=== PATIENT | female | born 1990 | race African-American/Black ===

== ENCOUNTER 2025-07-29 05:38 | Emergency (ER) | payer BC, OTHER ==
--- OUTSIDE RECORDS SUMMARY | 2025-07-29 05:50 | XMS REPORT | Continuity of Care Document ---
Author Name Unknown Address [address] [facility] [place] [address] Organization [facility] [place] Address [address] [facility] [address] [place] [address] Care Team Providers Care Human Resources Training Manager Name Role Phone JANICE SALDANA Primary Care Physician Unavailab ari Borrego Samia REYES Attending Clinician [phone] SAMIA BORREGO Attending Clinician Unavailable Doctor Unassigned, [place] Attending Clinician U MALVIN Damico Attending Clinician Unavailable Lab, Flako Bomwan Attending Clinician Unavailable Janice Bingham Attending Clinician [phone] JANICE SALDANA Attending Clinician Unavailable Ivania Arce LVN Attending Clinician Unavailabl e MICAH FISH Attending Clinician Unavail able Visit, [facility] Nurse Attending Clinician Unava ilable Abe Micah REYES Attending Clinician + Doctor Unassigned, [place] Attending Clinician U CINTIA Richards Attending Clinician Jennifer vailable Lab, Flako Bowman Attending Clinician Unavailable Cintia Carr MD Attending Clinician Shana CHAVEZ, Janice Attending Clinician [phone] JULIO REEVES Attending Clinician Unavaila ble JULIO REEVES Attending Clinician Unavaila kaci Diezpe WHCNP, Micah Russell Attending Clinician + [facility]ending Clinician Unafarshad Mathews, [facility] Attending Clinician Unavailshai Reeves MD, Julio Hutchinson Attending Clinician [phone] ROSALINO DENIS Attending Clinician UnaMACI Rios Attending Clinician Unavailshai Silva CNM, Maci Gibbons Attending Clinician [phone] MIKIE HANNA Attending Clinician UnavailMOLLY Jackson Attending Clinician Unavailable Molly Gonzalez S Attending Clinician [phone] YUE CARVALHO Attending Clinician Unavailab ari Provider, Amy Temp Attending Clinician Jennifer thor Carvalho ELECTRIC METER TECHNICIAN, Yue Loaiza Attending Clinician [phone] INDIGO BEAN Attending Clinician Unavailable Vikas CHAVEZ, [place] Attending Clinician [phone] EbCarl Ortiz Attending Clinician [phone] CARL ZARAGOZA Attending Clinician Unavailable Unknown, Attending Attending Clinician Unavailab ari AMBREEN_TIMA Attending Clinician Unavailable NAYELY CHILEL Attending Clinician UnavailFlako Sullivan Test Attending Clinician UnavailNayely Tang Attending Clinician + [phone] Rigoberto SONG, Carole T Attending Clinician Unavailab Leann VAUGHAN, Sandra Attending Clinician [phone] Eladia Iqbal Attending Clinician [phone] ELADIA HARDY Attending Clinician Unavailabl CHARITY Gonzalez Attending Clinician Unavailable Inocente BLACKPCharity Attending Clinician [phone] Provider, [facility] Attending Clinician Unavailable ROSALINO WALLS III Attending Clinician UnavailRosalino Lobo MD Attending Clinician [phone] ANTHONY ABERNATHY Attending Clinician Unavailflorencio Lopez MD, [facility] Attending Clinician + [phone] Nurse, [facility] Pob Immunization Attending Clinician Unavailable Pj Rangel DO Attending Clinician PJ RANGEL Attending Clinician Unavail able JO LOPEZ Attending Clinician Unavaila ble Only, Adc Test Attending Clinician Unavailable KASEY KEATING Attending Clinician Unavailflorencio LOERA, ALANA Attending Clinician Unavailable Graeme Siddiqui MD Attending Clinician [phone] Melissa Casillas PT Attending Clinician Unavailab Kasey Vallejo MD Attending Clinician [phone] DARWIN LANGE Attending Clinician Unavailable CT RYAN Attending Clinician UnavailOSCAR Douglas Attending Clinician Tommy Justin Attending Clinician Unavailable AMBREEN_FARHANA Admitting Clinician Unavailable Payers Payer Name Policy Type Policy Number Effective Date Expirati on Date Source Problems Condition Name Condition Details Condition Category Status Onset Date Resolution Date Last Treatment Date Treating Clinician Comments Source Anxiety Anxiety Disease Active 7- 00:00: 00 [facility] Vitamin D deficiency Vitamin D deficiency Disease Active 7-02 00:00: 00 [facility] Benign hypertensi on Benign hypertensi on Disease Active 7-02 00:00: 00 [facility] Prediabete s Prediabete s Disease Active 6-27 00:00: 00 [facility] Dysmenorrh ea Dysmenorrh ea Disease Active 9-17 00:00: 00 [facility] Palpitatio ns Palpitatio ns Disease Active 8-12 00:00: 00 [facility] Multinodul ar goiter Multinodul ar goiter Disease Active 8-12 00:00: 00 [facility] Blood pressure increase diastolic Blood pressure increase diastolic Disease Active 8-05 00:00: 00 [facility] History of syphilis History of syphilis Disease Active 5-13 00:00: 00 [facility] Syphilis Syphilis Disease Active 5-13 00:00: 00 [facility] Depo-Prove ra contracept jacky status Depo-Prove ra contracept jacky status Disease Active 02-17 00:00: 00 [facility] Class 2 obesity due to excess calories with body mass index (BMI) of 37.0 to 37.9 in adult, unspecifie d whether serious comorbidit y present Class 2 obesity due to excess calories with body mass index (BMI) of 37.0 to 37.9 in adult, unspecifie d whether serious comorbidit y present Disease Active 02-17 00:00: 00 [facility] Menorrhagi a with regular cycle Menorrhagi a with regular cycle Disease Active 01-31 00:00: 00 [facility] Obesity (BMI 30-39.9) Obesity (BMI 30-39.9) Disease Active 06-16 00:00: 00 [facility] History of bilateral tubal ligation History of bilateral tubal ligation Disease Active 04-06 00:00: 00 [facility] Acute right ankle pain Acute right ankle pain Disease Resolve d 2021-10 00:00: 00 2025-05-20 00:00:00 2025-05-20 16:40:44 [facility] Right ankle swelling Right ankle swelling Disease Resolve d 2021-10 00:00: 00 2025-05-20 00:00:00 2025-05-20 16:40:46 [facility] Lump or mass in breast Lump or mass in breast Disease Resolve d 04-06 00:00: 00 2025-05-20 00:00:00 2025-05-20 16:40:23 [facility] Ovarian cyst Ovarian cyst Disease Resolve d 04-06 00:00: 00 2025-05-20 00:00:00 2025-05-20 16:40:25 Overview: Formattin g of this note might be different from the original. Per patient report [facility] Class 2 obesity due to excess calories with body mass index (BMI) of 37.0 to 37.9 in adult, unspecifie d whether serious comorbidit y present Class 2 obesity due to excess calories with body mass index (BMI) of 37.0 to 37.9 in adult, unspecifie d whether serious comorbidit y present Disease Resolve d 5-11 00:00: 00 2022-09-15 00:00:00 2022-09-15 08:52:47 [facility] Vaginal discharge Vaginal discharge Disease Resolve d 5-11 00:00: 00 2022-09-14 00:00:00 2022-09-14 14:08:29 [facility] Well woman exam Well woman exam Disease Resolve d 4-24 00:00: 00 2022-09-14 00:00:00 2022-09-14 14:08:45 [facility] Screen for STD (sexually transmitte d disease) Screen for STD (sexually transmitte d disease) Disease Resolve d 07-04 00:00: 00 2022-09-14 00:00:00 2022-09-14 14:08:43 [facility] Bacterial vaginosis Bacterial vaginosis Disease Resolve d 8-16 00:00: 00 2022-09-14 00:00:00 2022-09-14 14:08:23 [facility] Encounter for surveillan ce of other contracept jacky Encounter for surveillan ce of other contracept jacky Disease Resolve d 1-14 00:00: 00 2022-09-14 00:00:00 2022-09-14 14:08:56 [facility] Well woman exam (no gynecologi charity exam) Well woman exam (no gynecologi charity exam) Disease Resolve d 1-14 00:00: 00 2022-09-14 00:00:00 2022-09-14 14:08:37 [facility] Anemia of mother in , condition Anemia of mother in , condition Disease Resolve d 07-04 00:00: 00 2017-07-26 00:00:00 2017-07-26 11:49:28 [facility] Indication for care in labor or delivery Indication for care in labor or delivery Disease Resolve d 06-19 00:00: 2017-07-04 00:00:00 2017-07-04 12:19:52 [facility] state state Disease Resolve d 9-10 00:00: 00 2017-07-04 00:00:00 2017-07-04 12:19:56 [facility] Status post section routine follow-up Status post section routine follow-up Disease Resolve d 9-10 00:00: 00 2017-07-04 00:00:00 2017-07-04 12:19:58 [facility] Group beta Strep positive Group beta Strep positive Disease Resolve d 8-18 00:00: 00 2017-07-04 00:00:00 2017-07-04 12:19:46 [facility] Anemia of mother in , antepartum , third trimester Anemia of mother in , antepartum , third trimester Disease Resolve d 8-17 00:00: 00 2017-07-04 00:00:00 2017-07-04 12:19:43 [facility] Sciatic nerve pain Sciatic nerve pain Disease Resolve d 7-05 00:00: 00 2017-07-04 00:00:00 2017-07-04 12:19:40 [facility] Supervisio n of high risk , antepartum Supervisio n of high risk , antepartum Disease Resolve d 04-06 00:00: 00 2017-07-04 00:00:00 2017-07-04 12:19:26 [facility] Multiparit y Multiparit y Disease Resolve d 04-06 00:00: 00 2017-07-04 00:00:00 2017-07-04 12:19:29 [facility] History of miscarriag e History of miscarriag e Disease Resolve d 04-06 00:00: 00 2017-07-04 00:00:00 2017-07-04 12:19:32 [facility] History of section History of section Disease Resolve d 04-06 00:00: 00 2017-07-04 00:00:00 2017-07-04 12:19:34 [facility] History of gestationa l hypertensi on History of gestationa l hypertensi on Disease Resolve d 04-06 00:00: 00 2017-07-04 00:00:00 2017-07-04 12:19:37 [facility] Obesity affecting Obesity affecting Disease Resolve d 1-14 00:00: 00 2017-07-04 00:00:00 2017-07-04 12:19:23 [facility] 39 weeks gestation of 39 weeks gestation of Disease Resolve d 06-17 00:00: 00 2017-06-19 00:00:00 2017-06-19 06:05:18 [facility] History of cervical dysplasia History of cervical dysplasia Disease Resolve d 1 00:00: 00 2017-04-06 00:00:00 2017-04-06 14:14:47 [facility] Allergies, Adverse Reactions, Alerts Allergy Name Allergy Type Status Severity Reaction(s) Onset Date Inactive Date Treating Clinician Comments Source NO KNOWN ALLERGIE S Drug Class Active [facility] Social History Social Habit Start Date Stop Date Quantity Comments Source [facility] History of tobacco use Cigar Smoker [facility] ASSERTION Not [facility] History of Occupation [facility] History SDOH Alcohol Frequency [facility] History SDOH Alcohol [facility] SD[facility] Alcohol Binge [facility] Alcoholic beverage intake 2025-05-20 00:00:00 2025-05-20 00:00:00 .43 /d [facility] History of Social function 2024-12-31 00:00:00 2024-12-31 00:00:00 [facility] Alcohol intake 2024-01-16 00:00:00 2024-01-16 00:00:00 .43 /d [facility] Tobacco use and exposure 2023-03-18 00:00:00 2023-03-18 00:00:00 Smokeless tobacco non-user [facility] Exposure to SARS-CoV-2 (event) 2023-01-10 00:00:00 2023-01-20 09:01:00 Not sure [facility] Alcohol Comment 2020-02-18 00:00:00 2020-02-18 00:00:00 socially [facility] Sex assigned at 1990 00:00:00 1990 00:00:00 [facility] Smoking Status Start Date Stop Date Source Never smoked tobacco [facility] Ex-smoker 2023-03-18 00:00:00 2023-03-18 [facility] Ordered Medication Name Filled Medication Name Start Date Stop Date Current Medication? Ordering Clinician Indication Dosage Frequency Signature (SIG) Comments Components Source medroxyPROG ESTERone (DEPO-PROVE RA) syringe 150 mg 05-14 19:00: 00 07-08 18:59 :00 Yes [id number] 150mg 150 mg, Intramuscu lar, [id number], 5 doses, First dose on Tue05/14/25 at 1400, Last dose on Tue04/15/26 at 1400, Routine [facility] metFORMIN 500 mg tablet 12-31 00:00: 00 Yes [id number] 500mg Take 1 tablet by mouth in the morning and 1 tablet in the evening. Take with meals. [facility] levocetiriz ine 5 mg tablet 12-31 00:00: 00 Yes [id number] 5mg Take 1 tablet by mouth every evening. [facility] fluticasone propion-amber meteroL (ADVAIR DISKUS) 250-50 mcg/dose inhalation disk 12-31 00:00: 00 Yes [id number] 1{puff} Inhale 1 Puff every 12 (twelve) hours. [facility] amLODIPine (NORVASC) 10 mg tablet 12-31 00:00: 00 Yes [id number] 10mg Take 1 tablet by mouth in the morning. [facility] azelastine 0.05 % ophthalmic solution 12-31 00:00: 00 Yes [id number] 1[drp] Place 1 Drop in both eyes in the morning and 1 Drop in the evening. [facility] traZODone 50 mg tablet 12-31 00:00: 05-14 00:00 :00 No [id number] 50mg Take 1 tablet by mouth at bedtime as needed for Insomnia. [facility] SERTraline 100 mg tablet 12-31 00:00: 00 05-14 00:00 :00 No [id number] 150mg Take 1.5 tablets by mouth in the morning. [facility] montelukast 10 mg tablet 12-31 00:00: 05-14 00:00 :00 No [id number] 10mg Take 1 tablet by mouth in the morning. [facility] busPIRone 10 mg tablet 04-24 10:05-14 00:00 :00 No TAKE 1 TABLET BY MOUTH 2 (TWO) TIMES DAILY NEEDED FOR OTHER (ANXIETY) FOR UP TO 45 DAYS. [facility] ibuprofen 800 mg tablet 04-24 10:: 05-14 00:00 :00 No TAKE 1 TABLET BY MOUTH EVERY 6 TO 8 HOURS NEEDED FOR PAIN [facility] bromphenira mine-pseudo ephedrine-D M 2-30-10 mg/5 mL syrup 04-24 10:12-31 00:00 :00 No PLEASE SEE ATTACHED FOR DETAILED DIRECTIONS [facility] amLODIPine (NORVASC) 10 mg tablet 04-10 00:00: 00 12-31 00:00 :00 No [id number] 10mg Take 1 tablet by mouth in the morning. [facility] metFORMIN 500 mg tablet 04-10 00:00: 00 12-31 00:00 :00 No [id number] 500mg Take 1 tablet by mouth in the morning and 1 tablet in the evening. Take with meals. [facility] naproxen 500 mg tablet 04-09 00:00: 00 05-14 00:00 :00 No [id number] 500mg Take 1 tablet by mouth 2 (two) times daily as needed for Pain (scale 4-6). [facility] SERTRALINE 100 mg tablet 04-05 00:00: 00 12-31 00:00 :00 No [id number] 150mg TAKE 1.5 TABLETS BY MOUTH IN THE MORNING [facility] azelastine 137 mcg (0.1 %) nasal spray 03-15 00:00: 00 Yes [id number] 1{spray } Use 1 [place] in each nostril in the morning and 1 [place] in the evening. Use in each nostril as directed [facility] naproxen 500 mg tablet 03-13 00:00: 00 04-09 00:00 :00 No [id number] 500mg Take 1 tablet by mouth 2 (two) times daily as needed for Pain (scale 4-6). [facility] methylPREDN ISolone 4 mg tablets 03-13 00:00: 00 03-20 04:59 :00 No [id number] Take by mouth SEE-INSTRU CTIONS for 6 days. follow package directions [facility] amLODIPine (NORVASC) 10 mg tablet 03-01 00:00: 00 04-10 00:00 :00 No [id number] 10mg Take 1 tablet by mouth in the morning. [facility] SERTraline (ZOLOFT) 100 mg tablet 03-01 00:00: 00 04-05 00:00 :00 No [id number] 150mg Take 1.5 tablets by mouth in the morning. [facility] traZODone 50 mg tablet 01-22 00:00: 00 12-31 00:00 :00 No [id number] 50mg Take 1 tablet by mouth at bedtime. [facility] fluticasone propion-amber meteroL (ADVAIR DISKUS) 250-50 mcg/dose inhalation disk -15 00:00: 00 12-31 00:00 :00 No [id number] 1{puff} Inhale 1 Puff every 12 (twelve) hours. [facility] fluticasone propionate 50 mcg/actuati on nasal spray 01-16 00:00: 00 05-14 00:00 :00 No SPRAY 1 SPRAY BY INTRANASAL ROUTE EVERY DAY [facility] amLODIPine (NORVASC) 5 mg tablet 01-15 00:00: 00 03-01 00:00 :00 No [id number] 5mg Take 1 tablet by mouth in the morning. [facility] AZELASTINE 0.05 % ophthalmic solution 01-09 00:00: 00 12-31 00:00 :00 No [id number] 1[drp] PLACE 1 DROP IN BOTH EYES IN THE MORNING AND 1 DROP IN THE EVENING. [facility] amLODIPine 2.5 mg tablet 01-01 00:00: 00 01-15 00:00 :00 No [id number] 2.5mg Take 1 tablet by mouth in the morning. [facility] albuterol 2.5 mg /3 mL (0.083 %) nebulizer solution 12-21 00:00: 00 Yes INHALE 3 ML BY NEBULIZATI ON 3 TIMES A DAY [facility] ipratropium 0.02 % nebulizer solution 12-21 00:00: 00 05-14 00:00 :00 No INHALE 2.5 ML EVERY 6 HOURS BY INHALATION ROUTE FOR 30 DAYS. [facility] triamcinolo ne acetonide (KENALOG) injection 40 mg 12-18 21:00: 00 12-18 20:28 :00 No [id number] 40mg [facility] levocetiriz ine 5 mg tablet 12-18 00:00: 00 12-31 00:00 :00 No [id number] 5mg Take 1 tablet by mouth every evening. [facility] montelukast 10 mg tablet 12-18 00:00: 00 12-31 00:00 :00 No [id number] 10mg Take 1 tablet by mouth in the morning. [facility] azelastine 137 mcg (0.1 %) nasal spray 2024-0 3-11 00:00: 00 03-15 00:00 :00 No [id number] 1{spray } Use 1 [place] in each nostril in the morning and 1 [place] in the evening. Use in each nostril as directed [facility] fluticasone propion-amber meteroL (ADVAIR DISKUS) 250-50 mcg/dose inhalation disk 3-11 00:00: 00 01-22 00:00 :00 No [id number] 1{puff} Inhale 1 Puff every 12 (twelve) hours. [facility] azelastine 0.05 % ophthalmic solution 3-11 00:00: 00 01-09 00:00 :00 No [id number] 1[drp] Place 1 Drop in both eyes in the morning and 1 Drop in the evening. [facility] bromphenira mine-pseudo ephedrine-D M (BROMFED DM) 2-30-10 mg/5 mL syrup 3- 00:00: 00 12-29 04:59 :00 No [id number] 5mL Take 5 mL by mouth 4 (four) times daily as needed for Congestion /Allergies or Cold symptoms for up to 10 days. [facility] SERTraline (ZOLOFT) 100 mg tablet 1- 00:00: 00 03-01 00:00 :00 No [id number] 100mg Take 1 tablet by mouth in the morning. [facility] traZODone 50 mg tablet 1- 00:00: 00 01-21 00:00 :00 No [id number] 50mg Take 1 tablet by mouth at bedtime. [facility] SERTraline 50 mg tablet 2022-10 2- 00:00: 00 10-11 00:00 :00 No [id number] 75mg TAKE 1.5 TABLETS BY MOUTH IN THE MORNING [facility] amLODIPine 2.5 mg tablet 2022-10 0-09 00:00: 00 Yes [id number] 2.5mg Take 1 tablet by mouth in the morning. [facility] SERTraline (ZOLOFT) 50 mg tablet 2022-10 00:00: 00 09-09 00:00 :00 No [id number] 75mg Take 1.5 tablets by mouth in the morning. [facility] BUSPIRONE 10 mg tablet 04-14 00:00: 00 05-30 04:59 :00 No [id number] 10mg TAKE 1 TABLET BY MOUTH 2 (TWO) TIMES DAILY NEEDED FOR OTHER (ANXIETY) FOR UP TO 45 DAYS. [facility] nystatin 100,000 unit/gram powder 04-05 00:00: 00 05-14 00:00 :00 No [id number] Apply to area(s) 2 (two) times daily as needed for Other (venancio skin fold). [facility] clotrimazol e-betametha sone (LOTRISONE) cream 04-05 00:00: 00 05-14 00:00 :00 No [id number] Apply to area(s) 2 (two) times daily. [facility] SERTraline (ZOLOFT) 50 mg tablet 04-05 00:00: 00 07-18 00:00 :00 No [id number] 50mg Take 1 tablet by mouth in the morning. [facility] ergocalcife rol, vitamin d2, 1,250 mcg (50,000 unit) capsule 04-03 00:00: 00 12-31 00:00 :00 No [id number] 23391P Take 1 capsule by mouth weekly. [facility] metFORMIN 500 mg tablet 03-18 00:00: 00 04-10 00:00 :00 No [id number] 500mg Take 1 tablet by mouth in the morning and 1 tablet in the evening. Take with meals. [facility] levocetiriz ine 5 mg tablet 03-18 00:00: 00 12-18 00:00 :00 No [id number] 5mg Take 1 tablet by mouth every evening. [facility] montelukast 10 mg tablet 03-18 00:00: 00 12-18 00:00 :00 No [id number] 10mg Take 1 tablet by mouth in the morning. [facility] semaglutide , weight loss, (WEGOVY) 0.25 mg/0.5 mL PnIj SC injection 03-18 00:00: 00 07-18 00:00 :00 No [id number] .25mg inject 0.25 mg under the skin weekly. [facility] amLODIPine 2.5 mg tablet 03-18 00:00: 00 07-18 00:00 :00 No [id number] 2.5mg Take 1 tablet by mouth in the morning. [facility] busPIRone 10 mg tablet 03-18 00:00: 00 04-14 00:00 :00 No [id number] 10mg Take 1 tablet by mouth 2 (two) times daily as needed for Other (anxiety) for up to 45 days. [facility] SERTraline (ZOLOFT) 50 mg tablet 03-18 00:00: 00 04-05 00:00 :00 No [id number] 50mg Take 1 tablet by mouth in the morning. [facility] montelukast 10 mg tablet 01-19 00:00: 00 03-18 00:00 :00 No [id number] 10mg Take 1 tablet by mouth in the morning. [facility] levocetiriz ine 5 mg tablet 01-19 00:00: 00 03-18 00:00 :00 No [id number] 5mg Take 1 tablet by mouth every evening. [facility] amLODIPine 2.5 mg tablet 10-18 00:00: 00 03-18 00:00 :00 No [id number] 2.5mg Take 1 tablet by mouth in the morning. [facility] metFORMIN 500 mg tablet 10-18 00:00: 00 03-18 00:00 :00 No [id number] 500mg Take 1 tablet by mouth in the morning and 1 tablet in the evening. Take with meals. [facility] amLODIPine 2.5 mg tablet 2021-10 10:52: 36 09-17 00:00 :00 No 2.5mg Take 2.5 mg by mouth daily. [facility] amLODIPine 2.5 mg tablet 2021-10 00:00: 00 10-15 00:00 :00 No [id number] 2.5mg Take 1 tablet by mouth in the morning. [facility] metFORMIN 500 mg tablet 2021-10 00:00: 00 10-15 00:00 :00 No [id number] 500mg Take 1 tablet by mouth in the morning and 1 tablet in the evening. Take with meals. [facility] medroxyPROG ESTERone (DEPO-PROVE RA) syringe 150 mg 2021-10 20:15: 00 05-14 18:58 :49 No [id number] 150mg 150 mg, Intramuscu lar, [id number], First dose on Tue09/14/22 at 1415, Until Discontinu ed, Routine [facility] cyclobenzap rine 5 mg tablet 2021-10 00:00: 00 09-17 00:00 :00 No [id number] 5mg Take 1 tablet by mouth in the morning and 1 tablet at noon and 1 tablet in the evening. [facility] methylPREDN ISolone (MEDROL, ALEKS,) 4 mg tablets 2021-10 00:00: 00 08-17 05:59 :00 No [id number] Take by mouth SEE-INSTRU CTIONS for 5 days. follow package directions [facility] ibuprofen (IBU) tablet 800 mg 2021-10 15:15: 00 08-03 14:30 :00 No [id number] 800mg [facility] amLODIPine 2.5 mg tablet 2021-10 10:41: 47 Yes 2.5mg Take 2.5 mg by mouth daily. [facility] albuterol 90 mcg/actuati on inhaler 2021-10 00:00: 00 Yes [id number] 2{puff} Inhale 2 Puffs every 6 (six) hours as needed for Wheezing or Shortness of Breath. [facility] levocetiriz ine 5 mg tablet 2021-10 00:00: 00 01-19 00:00 :00 No [id number] 5mg Take 1 tablet by mouth every evening. [facility] montelukast [facility] mg tablet 2021-10 00:00: 00 01-19 00:00 :00 No [id number] 10mg Take 1 tablet by mouth in the morning. [facility] bromphenira mine-pseudo ephedrine-D M (BROMFED DM) 2-30-10 mg/5 mL syrup 2021-10 00:00: 00 08-02 04:59 :00 No [id number] 5mL Take 5 mL by mouth 4 (four) times daily as needed for Congestion /Allergies or Cough for up to 10 days. [facility] azithromyci n 250 mg tablet 2021-10 00:00: 00 07-29 04:59 :00 No [id number] 250mg Z-Aleks = 500 mg day 1, then 250 mg days 2 to 5. Take 500 mg day 1, then 250 mg days 2 to 5. [facility] medroxyPROG ESTERone (DEPO-PROVE RA) injection 150 mg 06-22 17:00: 00 06-22 20:38 :00 No [id number] 150mg [facility] amLODIPine 2.5 mg tablet 11-09 11:31: 19 Yes 2.5mg Take 2.5 mg by mouth daily. [facility] albuterol 2.5 mg /3 mL (0.083 %) nebulizer solution 11-09 00:00: 00 07-22 00:00 :00 No [id number] 2.5mg Inhale 3 mL every 4 (four) hours as needed for Wheezing or Shortness of Breath. [facility] ipratropium 0.02 % nebulizer solution 11-09 00:00: 00 07-22 00:00 :00 No [id number] .5mg Inhale 2.5 mL every 4 (four) hours as needed for Wheezing or Shortness of Breath. [facility] albuterol 90 mcg/actuati on inhaler 11-09 00:00: 00 07-22 00:00 :00 No [id number] 2{puff} Inhale 2 Puffs every 6 (six) hours as needed for Wheezing or Shortness of Breath. [facility] benzonatate 100 mg capsule 11-09 00:00: 00 07-22 00:00 :00 No [id number] 200mg Take 2 capsules by mouth every 8 (eight) hours as needed for Cough. [facility] codeine-gua ifenesin 10-100 mg/5 mL oral solution 11-09 00:00: 00 07-22 00:00 :00 No 5mL Take 5 mL by mouth every 6 (six) hours as needed for Cough. Indication s: cough [facility] medroxyPROG ESTERone (DEPO-PROVE RA) injection 150 mg 17 16:15: 00 03-11 15:17 :00 No [id number] 150mg 150 mg, Intramuscu lar, [id number], 4 doses, First dose on Tue06/26/21 at 1115, Last dose on Tue03/05/22 at 1115, Routine [facility] meloxicam 7.5 mg tablet 8-19 00:00: 00 07-22 00:00 :00 No [id number] 7.5mg Take 1 tablet by mouth daily. [facility] methocarbam oL 500 mg tablet 7-08 00:00: 00 11-09 00:00 :00 No [id number] 500mg Take 1 tablet by mouth at bedtime as needed for Pain (scale 7-10). [facility] Immunizations Ordered Immunization Name Filled Immunization Name Date Status Comments Source TDAP 2024-05-05 00:00:00 Completed [facility] SARS-COV-2 COVID-19 PFIZER VACCINE 2024-05-05 00:00:00 Completed [facility] HPV9 2024-05-05 00:00:00 Completed [facility] Influenza Virus Vaccine Quad IM, Preserv and ABX Free 6 MO-64 YRS (FLUCELVAX) 2024-05-05 00:00:00 Completed [facility] Pneumococcal 20 Conjugate, PCV20 (Prevnar 20) 2024-05-05 00:00:00 Completed [facility] TDAP 2024-03-13 13:00:00 Completed [facility] SARS-COV-2 COVID-19 PFIZER VACCINE 2024-03-13 13:00:00 Completed [facility] HPV9 2024-03-13 13:00:00 Completed [facility] Influenza Virus Vaccine Quad IM, Preserv and ABX Free 6 MO-64 YRS (FLUCELVAX) 2024-03-13 13:00:00 Completed [facility] Pneumococcal 20 Conjugate, PCV20 (Prevnar 20) 2024-03-13 13:00:00 Completed [facility] Influenza Virus Vaccine Quad IM, Preserv and ABX Free 6 MO-64 YRS (FLUCELVAX) 2024-03-01 13:00:00 Completed [facility] Pneumococcal 20 Conjugate, PCV20 (Prevnar 20) 2024-03-01 13:00:00 Completed [facility] TDAP 2024-03-01 13:00:00 Completed [facility] SARS-COV-2 COVID-19 PFIZER VACCINE 2024-03-01 13:00:00 Completed [facility] HPV9 2024-03-01 13:00:00 Completed [facility] TDAP 2024-01-23 00:00:00 Completed [facility] SARS-COV-2 COVID-19 PFIZER VACCINE 2024-01-23 00:00:00 Completed [facility] HPV9 2024-01-23 00:00:00 Completed [facility] Influenza Virus Vaccine Quad IM, Preserv and ABX Free 6 MO-64 YRS (FLUCELVAX) 2024-01-23 00:00:00 Completed [facility] Pneumococcal 20 Conjugate, PCV20 (Prevnar 20) 2024-01-23 00:00:00 Completed [facility] TDAP 2024-01-22 00:00:00 Completed [facility] SARS-COV-2 COVID-19 PFIZER VACCINE 2024-01-22 00:00:00 Completed [facility] HPV9 2024-01-22 00:00:00 Completed [facility] Influenza Virus Vaccine Quad IM, Preserv and ABX Free 6 MO-64 YRS (FLUCELVAX) 2024-01-22 00:00:00 Completed [facility] Pneumococcal 20 Conjugate, PCV20 (Prevnar 20) 2024-01-22 00:00:00 Completed [facility] Influenza Virus Vaccine Quad IM, Preserv and ABX Free 6 MO-64 YRS (FLUCELVAX) 2024-01-16 15:30:00 Completed [facility] Pneumococcal 20 Conjugate, PCV20 (Prevnar 20) 2024-01-16 15:30:00 Completed [facility] TDAP 2024-01-16 15:30:00 Completed [facility] SARS-COV-2 COVID-19 PFIZER VACCINE 2024-01-16 15:30:00 Completed [facility] HPV9 2024-01-16 15:30:00 Completed [facility] TDAP 2024-01-16 14:00:00 Completed [facility] SARS-COV-2 COVID-19 PFIZER VACCINE 2024-01-16 14:00:00 Completed [facility] HPV9 2024-01-16 14:00:00 Completed [facility] Influenza Virus Vaccine Quad IM, Preserv and ABX Free 6 MO-64 YRS (FLUCELVAX) 2024-01-16 14:00:00 Completed [facility] Pneumococcal 20 Conjugate, PCV20 (Prevnar 20) 2024-01-16 14:00:00 Completed [facility] TDAP 2024-01-10 00:00:00 Completed [facility] SARS-COV-2 COVID-19 PFIZER VACCINE 2024-01-10 00:00:00 Completed [facility] HPV9 2024-01-10 00:00:00 Completed [facility] Influenza Virus Vaccine Quad IM, Preserv and ABX Free 6 MO-64 YRS (FLUCELVAX) 2024-01-10 00:00:00 Completed [facility] Pneumococcal 20 Conjugate, PCV20 (Prevnar 20) 2024-01-10 00:00:00 Completed [facility] Influenza Virus Vaccine Quad IM, Preserv and ABX Free 6 MO-64 YRS (FLUCELVAX) 2023-12-19 14:30:00 Completed [facility] Pneumococcal 20 Conjugate, PCV20 (Prevnar 20) 2023-12-19 14:30:00 Completed [facility] TDAP 2023-12-19 14:30:00 Completed [facility] SARS-COV-2 COVID-19 PFIZER VACCINE 2023-12-19 14:30:00 Completed [facility] HPV9 2023-12-19 14:30:00 Completed [facility] TDAP 2023-12-19 00:00:00 Completed [facility] SARS-COV-2 COVID-19 PFIZER VACCINE 2023-12-19 00:00:00 Completed [facility] HPV9 2023-12-19 00:00:00 Completed [facility] Influenza Virus Vaccine Quad IM, Preserv and ABX Free 6 MO-64 YRS (FLUCELVAX) 2023-12-19 00:00:00 Completed [facility] Pneumococcal 20 Conjugate, PCV20 (Prevnar 20) 2023-12-19 00:00:00 Completed [facility] Influenza Virus Vaccine Quad IM, Preserv and ABX Free 6 MO-64 YRS (FLUCELVAX) 2023-11-14 08:15:00 Completed [facility] Pneumococcal 20 Conjugate, PCV20 (Prevnar 20) 2023-11-14 08:15:00 Completed [facility] TDAP 2023-11-14 08:15:00 Completed [facility] SARS-COV-2 COVID-19 PFIZER VACCINE 2023-11-14 08:15:00 Completed [facility] HPV9 2023-11-14 08:15:00 Completed [facility] TDAP 2023-11-14 00:00:00 Completed [facility] SARS-COV-2 COVID-19 PFIZER VACCINE 2023-11-14 00:00:00 Completed [facility] HPV9 2023-11-14 00:00:00 Completed [facility] Influenza Virus Vaccine Quad IM, Preserv and ABX Free 6 MO-64 YRS (FLUCELVAX) 2023-11-14 00:00:00 Completed [facility] Pneumococcal 20 Conjugate, PCV20 (Prevnar 20) 2023-11-14 00:00:00 Completed [facility] TDAP 2023-10-14 00:00:00 Completed [facility] SARS-COV-2 COVID-19 PFIZER VACCINE 2023-10-14 00:00:00 Completed [facility] HPV9 2023-10-14 00:00:00 Completed [facility] Influenza Virus Vaccine Quad IM, Preserv and ABX Free 6 MO-64 YRS (FLUCELVAX) 2023-10-14 00:00:00 Completed [facility] Pneumococcal 20 Conjugate, PCV20 (Prevnar 20) 2023-10-14 00:00:00 Completed [facility] Influenza Virus Vaccine Quad IM, Preserv and ABX Free 6 MO-64 YRS (FLUCELVAX) 2023-10-13 14:15:00 Completed [facility] Pneumococcal 20 Conjugate, PCV20 (Prevnar 20) 2023-10-13 14:15:00 Completed [facility] TDAP 2023-10-13 14:15:00 Completed [facility] SARS-COV-2 COVID-19 PFIZER VACCINE 2023-10-13 14:15:00 Completed [facility] HPV9 2023-10-13 14:15:00 Completed [facility] TDAP 2023-10-13 13:00:00 Completed [facility] SARS-COV-2 COVID-19 PFIZER VACCINE 2023-10-13 13:00:00 Completed [facility] HPV9 2023-10-13 13:00:00 Completed [facility] Influenza Virus Vaccine Quad IM, Preserv and ABX Free 6 MO-64 YRS (FLUCELVAX) 2023-10-13 13:00:00 Completed [facility] Pneumococcal 20 Conjugate, PCV20 (Prevnar 20) 2023-10-13 13:00:00 Completed [facility] HPV9 2023-10-13 00:00:00 Completed TDAP 2023-10-11 16:00:00 Completed [facility] SARS-COV-2 COVID-19 PFIZER VACCINE 2023-10-11 16:00:00 Completed [facility] HPV9 2023-10-11 16:00:00 Completed [facility] Influenza Virus Vaccine Quad IM, Preserv and ABX Free 6 MO-64 YRS (FLUCELVAX) 2023-10-11 16:00:00 Completed [facility] Pneumococcal 20 Conjugate, PCV20 (Prevnar 20) 2023-10-11 16:00:00 Completed [facility] TDAP 2023-10-11 00:00:00 Completed [facility] SARS-COV-2 COVID-19 PFIZER VACCINE 2023-10-11 00:00:00 Completed [facility] HPV9 2023-10-11 00:00:00 Completed [facility] Influenza Virus Vaccine Quad IM, Preserv and ABX Free 6 MO-64 YRS (FLUCELVAX) 2023-10-11 00:00:00 Completed [facility] Pneumococcal 20 Conjugate, PCV20 (Prevnar 20) 2023-10-11 00:00:00 Completed [facility] TDAP 2023-09-20 00:00:00 Completed [facility] SARS-COV-2 COVID-19 PFIZER VACCINE 2023-09-20 00:00:00 Completed [facility] HPV9 2023-09-20 00:00:00 Completed [facility] Influenza Virus Vaccine Quad IM, Preserv and ABX Free 6 MO-64 YRS (FLUCELVAX) 2023-09-20 00:00:00 Completed [facility] TDAP 2023-09-09 00:00:00 Completed [facility] SARS-COV-2 COVID-19 PFIZER VACCINE 2023-09-09 00:00:00 Completed [facility] HPV9 2023-09-09 00:00:00 Completed [facility] Influenza Virus Vaccine Quad IM, Preserv and ABX Free 6 MO-64 YRS (FLUCELVAX) 2023-09-09 00:00:00 Completed [facility] TDAP 2023-07-18 13:30:00 Completed [facility] SARS-COV-2 COVID-19 PFIZER VACCINE 2023-07-18 13:30:00 Completed [facility] HPV9 2023-07-18 13:30:00 Completed [facility] Influenza Virus Vaccine Quad IM, Preserv and ABX Free 6 MO-64 YRS (FLUCELVAX) 2023-07-18 13:30:00 Completed [facility] SARS-COV-2 COVID-19 PFIZER VACCINE 2023-07-18 11:30:00 Completed [facility] HPV9 2023-07-18 11:30:00 Completed [facility] TDAP 2023-07-18 11:30:00 Completed [facility] HPV9 2023-07-18 00:00:00 Completed [facility] TDAP 2023-06-29 00:00:00 Completed [facility] SARS-COV-2 COVID-19 PFIZER VACCINE 2023-06-29 00:00:00 Completed [facility] HPV9 2023-06-29 00:00:00 Completed [facility] TDAP 2023-06-27 00:00:00 Completed [facility] SARS-COV-2 COVID-19 PFIZER VACCINE 2023-06-27 00:00:00 Completed [facility] HPV9 2023-06-27 00:00:00 Completed [facility] TDAP 2023-04-06 00:00:00 Completed [facility] SARS-COV-2 COVID-19 PFIZER VACCINE 2023-04-06 00:00:00 Completed [facility] HPV9 2023-04-06 00:00:00 Completed [facility] HPV9 2022-09-14 00:00:00 Completed [facility] HPV9 2022-09-14 00:00:00 Completed [facility] HPV9 2022-09-14 00:00:00 Completed [facility] HPV9 2022-09-14 00:00:00 Completed [facility] HPV9 2022-09-14 00:00:00 Completed [facility] HPV9 2022-09-14 00:00:00 Completed [facility] HPV9 2022-09-14 00:00:00 Completed [facility] HPV9 2022-09-14 00:00:00 Completed [facility] HPV9 2022-09-14 00:00:00 Completed [facility] HPV9 2022-09-14 00:00:00 Completed [facility] HPV9 2022-09-14 00:00:00 Completed [facility] HPV9 2022-09-14 00:00:00 Completed [facility] HPV9 2022-09-14 00:00:00 Completed [facility] HPV9 2022-09-14 00:00:00 Completed [facility] HPV9 2022-09-14 00:00:00 Completed [facility] HPV9 2022-09-14 00:00:00 Completed [facility] HPV9 2022-09-14 00:00:00 Completed [facility] HPV9 2022-09-14 00:00:00 Completed [facility] HPV9 2022-09-14 00:00:00 Completed [facility] HPV9 2022-09-14 00:00:00 Completed [facility] HPV9 2022-09-14 00:00:00 Completed [facility] HPV9 2022-09-14 00:00:00 Completed [facility] HPV9 2022-09-14 00:00:00 Completed [facility] TDAP 2022-08-03 00:00:00 Completed [facility] SARS-COV-2 COVID-19 PFIZER VACCINE 2022-08-03 00:00:00 Completed [facility] TDAP 2021-09-09 00:00:00 Completed [facility] SARS-COV-2 COVID-19 PFIZER VACCINE 2021-09-09 00:00:00 Completed [facility] SARS-COV-2 COVID-19 PFIZER VACCINE 2021-08-17 00:00:00 Completed [facility] SARS-COV-2 COVID-19 PFIZER VACCINE 2021-08-17 00:00:00 Completed [facility] SARS-COV-2 COVID-19 PFIZER VACCINE 2021-08-17 00:00:00 Completed [facility] SARS-COV-2 COVID-19 PFIZER VACCINE 2021-08-17 00:00:00 Completed [facility] SARS-COV-2 COVID-19 PFIZER VACCINE 2021-08-17 00:00:00 Completed [facility] SARS-COV-2 COVID-19 PFIZER VACCINE 2021-08-17 00:00:00 Completed [facility] SARS-COV-2 COVID-19 PFIZER VACCINE 2021-08-17 00:00:00 Completed [facility] SARS-COV-2 COVID-19 PFIZER VACCINE 2021-08-17 00:00:00 Completed [facility] SARS-COV-2 COVID-19 PFIZER VACCINE 2021-08-17 00:00:00 Completed [facility] SARS-COV-2 COVID-19 PFIZER VACCINE 2021-08-17 00:00:00 Completed [facility] SARS-COV-2 COVID-19 PFIZER VACCINE 2021-08-17 00:00:00 Completed [facility] SARS-COV-2 COVID-19 PFIZER VACCINE 2021-08-17 00:00:00 Completed [facility] SARS-COV-2 COVID-19 PFIZER VACCINE 2021-08-17 00:00:00 Completed [facility] SARS-COV-2 COVID-19 PFIZER VACCINE 2021-08-17 00:00:00 Completed [facility] SARS-COV-2 COVID-19 PFIZER VACCINE 2021-08-17 00:00:00 Completed [facility] SARS-COV-2 COVID-19 PFIZER VACCINE 2021-08-17 00:00:00 Completed [facility] SARS-COV-2 COVID-19 PFIZER VACCINE 2021-08-17 00:00:00 Completed [facility] SARS-COV-2 COVID-19 PFIZER VACCINE 2021-08-17 00:00:00 Completed [facility] SARS-COV-2 COVID-19 PFIZER VACCINE 2021-08-17 00:00:00 Completed [facility] SARS-COV-2 COVID-19 PFIZER VACCINE 2021-08-17 00:00:00 Completed [facility] SARS-COV-2 COVID-19 PFIZER VACCINE 2021-08-17 00:00:00 Completed [facility] SARS-COV-2 COVID-19 PFIZER VACCINE 2021-08-17 00:00:00 Completed [facility] SARS-COV-2 COVID-19 PFIZER VACCINE 2021-08-17 00:00:00 Completed [facility] SARS-COV-2 COVID-19 PFIZER VACCINE 2021-08-17 00:00:00 Completed [facility] SARS-COV-2 COVID-19 PFIZER VACCINE 2021-08-17 00:00:00 Completed [facility] SARS-COV-2 COVID-19 PFIZER VACCINE 2021-08-17 00:00:00 Completed [facility] SARS-COV-2 COVID-19 PFIZER VACCINE 2021-08-17 00:00:00 Completed [facility] SARS-COV-2 COVID-19 PFIZER VACCINE 2021-08-17 00:00:00 Completed [facility] SARS-COV-2 COVID-19 PFIZER VACCINE 2021-08-17 00:00:00 Completed [facility] SARS-COV-2 COVID-19 PFIZER VACCINE 2021-08-17 00:00:00 Completed [facility] SARS-COV-2 COVID-19 PFIZER VACCINE 2021-08-17 00:00:00 Completed [facility] SARS-COV-2 COVID-19 PFIZER VACCINE 2021-08-17 00:00:00 Completed [facility] SARS-COV-2 COVID-19 PFIZER VACCINE 2021-08-17 00:00:00 Completed [facility] SARS-COV-2 COVID-19 PFIZER VACCINE 2021-08-17 00:00:00 Completed [facility] SARS-COV-2 COVID-19 PFIZER VACCINE 2021-08-17 00:00:00 Completed [facility] SARS-COV-2 COVID-19 PFIZER VACCINE 2021-08-17 00:00:00 Completed [facility] SARS-COV-2 COVID-19 PFIZER VACCINE 2021-08-17 00:00:00 Completed [facility] SARS-COV-2 COVID-19 PFIZER VACCINE 2021-08-17 00:00:00 Completed [facility] SARS-COV-2 COVID-19 PFIZER VACCINE 2021-08-17 00:00:00 Completed [facility] SARS-COV-2 COVID-19 PFIZER VACCINE 2021-08-17 00:00:00 Completed [facility] SARS-COV-2 COVID-19 PFIZER VACCINE 2021-08-17 00:00:00 Completed [facility] SARS-COV-2 COVID-19 PFIZER VACCINE 2021-08-17 00:00:00 Completed [facility] SARS-COV-2 COVID-19 PFIZER VACCINE 2021-08-17 00:00:00 Completed [facility] SARS-COV-2 COVID-19 PFIZER VACCINE 2021-08-17 00:00:00 Completed [facility] SARS-COV-2 COVID-19 PFIZER VACCINE 2021-08-17 00:00:00 Completed [facility] SARS-COV-2 COVID-19 PFIZER VACCINE 2021-08-17 00:00:00 Completed [facility] SARS-COV-2 COVID-19 PFIZER VACCINE 2021-08-17 00:00:00 Completed [facility] SARS-COV-2 COVID-19 PFIZER VACCINE 2021-08-17 00:00:00 Completed [facility] SARS-COV-2 COVID-19 PFIZER VACCINE 2021-08-17 00:00:00 Completed [facility] SARS-COV-2 COVID-19 PFIZER VACCINE 2021-07-27 00:00:00 Completed [facility] SARS-COV-2 COVID-19 PFIZER VACCINE 2021-07-27 00:00:00 Completed [facility] SARS-COV-2 COVID-19 PFIZER VACCINE 2021-07-27 00:00:00 Completed [facility] SARS-COV-2 COVID-19 PFIZER VACCINE 2021-07-27 00:00:00 Completed [facility] SARS-COV-2 COVID-19 PFIZER VACCINE 2021-07-27 00:00:00 Completed [facility] SARS-COV-2 COVID-19 PFIZER VACCINE 2021-07-27 00:00:00 Completed [facility] SARS-COV-2 COVID-19 PFIZER VACCINE 2021-07-27 00:00:00 Completed [facility] SARS-COV-2 COVID-19 PFIZER VACCINE 2021-07-27 00:00:00 Completed [facility] SARS-COV-2 COVID-19 PFIZER VACCINE 2021-07-27 00:00:00 Completed [facility] SARS-COV-2 COVID-19 PFIZER VACCINE 2021-07-27 00:00:00 Completed [facility] SARS-COV-2 COVID-19 PFIZER VACCINE 2021-07-27 00:00:00 Completed [facility] SARS-COV-2 COVID-19 PFIZER VACCINE 2021-07-27 00:00:00 Completed [facility] SARS-COV-2 COVID-19 PFIZER VACCINE 2021-07-27 00:00:00 Completed [facility] SARS-COV-2 COVID-19 PFIZER VACCINE 2021-07-27 00:00:00 Completed [facility] SARS-COV-2 COVID-19 PFIZER VACCINE 2021-07-27 00:00:00 Completed [facility] SARS-COV-2 COVID-19 PFIZER VACCINE 2021-07-27 00:00:00 Completed [facility] SARS-COV-2 COVID-19 PFIZER VACCINE 2021-07-27 00:00:00 Completed [facility] SARS-COV-2 COVID-19 PFIZER VACCINE 2021-07-27 00:00:00 Completed [facility] SARS-COV-2 COVID-19 PFIZER VACCINE 2021-07-27 00:00:00 Completed [facility] SARS-COV-2 COVID-19 PFIZER VACCINE 2021-07-27 00:00:00 Completed [facility] SARS-COV-2 COVID-19 PFIZER VACCINE 2021-07-27 00:00:00 Completed [facility] SARS-COV-2 COVID-19 PFIZER VACCINE 2021-07-27 00:00:00 Completed [facility] SARS-COV-2 COVID-19 PFIZER VACCINE 2021-07-27 00:00:00 Completed [facility] SARS-COV-2 COVID-19 PFIZER VACCINE 2021-07-27 00:00:00 Completed [facility] SARS-COV-2 COVID-19 PFIZER VACCINE 2021-07-27 00:00:00 Completed [facility] SARS-COV-2 COVID-19 PFIZER VACCINE 2021-07-27 00:00:00 Completed [facility] SARS-COV-2 COVID-19 PFIZER VACCINE 2021-07-27 00:00:00 Completed [facility] SARS-COV-2 COVID-19 PFIZER VACCINE 2021-07-27 00:00:00 Completed [facility] SARS-COV-2 COVID-19 PFIZER VACCINE 2021-07-27 00:00:00 Completed [facility] SARS-COV-2 COVID-19 PFIZER VACCINE 2021-07-27 00:00:00 Completed [facility] SARS-COV-2 COVID-19 PFIZER VACCINE 2021-07-27 00:00:00 Completed [facility] SARS-COV-2 COVID-19 PFIZER VACCINE 2021-07-27 00:00:00 Completed [facility] SARS-COV-2 COVID-19 PFIZER VACCINE 2021-07-27 00:00:00 Completed [facility] SARS-COV-2 COVID-19 PFIZER VACCINE 2021-07-27 00:00:00 Completed [facility] SARS-COV-2 COVID-19 PFIZER VACCINE 2021-07-27 00:00:00 Completed [facility] SARS-COV-2 COVID-19 PFIZER VACCINE 2021-07-27 00:00:00 Completed [facility] SARS-COV-2 COVID-19 PFIZER VACCINE 2021-07-27 00:00:00 Completed [facility] SARS-COV-2 COVID-19 PFIZER VACCINE 2021-07-27 00:00:00 Completed [facility] SARS-COV-2 COVID-19 PFIZER VACCINE 2021-07-27 00:00:00 Completed [facility] SARS-COV-2 COVID-19 PFIZER VACCINE 2021-07-27 00:00:00 Completed [facility] SARS-COV-2 COVID-19 PFIZER VACCINE 2021-07-27 00:00:00 Completed [facility] SARS-COV-2 COVID-19 PFIZER VACCINE 2021-07-27 00:00:00 Completed [facility] SARS-COV-2 COVID-19 PFIZER VACCINE 2021-07-27 00:00:00 Completed [facility] SARS-COV-2 COVID-19 PFIZER VACCINE 2021-07-27 00:00:00 Completed [facility] SARS-COV-2 COVID-19 PFIZER VACCINE 2021-07-27 00:00:00 Completed [facility] SARS-COV-2 COVID-19 PFIZER VACCINE 2021-07-27 00:00:00 Completed [facility] SARS-COV-2 COVID-19 PFIZER VACCINE 2021-07-27 00:00:00 Completed [facility] SARS-COV-2 COVID-19 PFIZER VACCINE 2021-07-27 00:00:00 Completed [facility] TDAP 2021-07-23 00:00:00 Completed [facility] TDAP 2021-07-03 00:00:00 Completed [facility] TDAP 2021-05-27 00:00:00 Completed [facility] TDAP 2021-05-20 00:00:00 Completed [facility] TDAP 2021-03-29 00:00:00 Completed [facility] TDAP 2020-07-10 00:00:00 Completed [facility] TDAP 2017-04-06 00:00:00 Completed [facility] TDAP 2017-04-06 00:00:00 Completed [facility] TDAP 2017-04-06 00:00:00 Completed [facility] TDAP 2017-04-06 00:00:00 Completed [facility] TDAP 2017-04-06 00:00:00 Completed [facility] TDAP 2017-04-06 00:00:00 Completed [facility] TDAP 2017-04-06 00:00:00 Completed [facility] TDAP 2017-04-06 00:00:00 Completed [facility] TDAP 2017-04-06 00:00:00 Completed [facility] TDAP 2017-04-06 00:00:00 Completed [facility] TDAP 2017-04-06 00:00:00 Completed [facility] TDAP 2017-04-06 00:00:00 Completed [facility] TDAP 2017-04-06 00:00:00 Completed [facility] TDAP 2017-04-06 00:00:00 Completed [facility] TDAP 2017-04-06 00:00:00 Completed [facility] TDAP 2017-04-06 00:00:00 Completed [facility] TDAP 2017-04-06 00:00:00 Completed [facility] TDAP 2017-04-06 00:00:00 Completed [facility] TDAP 2017-04-06 00:00:00 Completed [facility] TDAP 2017-04-06 00:00:00 Completed [facility] TDAP 2017-04-06 00:00:00 Completed [facility] TDAP 2017-04-06 00:00:00 Completed [facility] TDAP 2017-04-06 00:00:00 Completed [facility] TDAP 2017-04-06 00:00:00 Completed [facility] TDAP 2017-04-06 00:00:00 Completed [facility] TDAP 2017-04-06 00:00:00 Completed [facility] TDAP 2017-04-06 00:00:00 Completed [facility] TDAP 2017-04-06 00:00:00 Completed [facility] TDAP 2017-04-06 00:00:00 Completed [facility] TDAP 2017-04-06 00:00:00 Completed [facility] TDAP 2017-04-06 00:00:00 Completed [facility] TDAP 2017-04-06 00:00:00 Completed [facility] TDAP 2017-04-06 00:00:00 Completed [facility] TDAP 2017-04-06 00:00:00 Completed [facility] TDAP 2017-04-06 00:00:00 Completed [facility] TDAP 2017-04-06 00:00:00 Completed [facility] TDAP 2017-04-06 00:00:00 Completed [facility] TDAP 2017-04-06 00:00:00 Completed [facility] TDAP 2017-04-06 00:00:00 Completed [facility] TDAP 2017-04-06 00:00:00 Completed [facility] TDAP 2017-04-06 00:00:00 Completed [facility] TDAP 2017-04-06 00:00:00 Completed [facility] TDAP 2017-04-06 00:00:00 Completed [facility] TDAP 2017-04-06 00:00:[address] [facility] TDAP 2017-04-06 00:00:[address] [facility] TDAP 2017-04-06 00:00:[address] [facility] TDAP 2017-04-06 00:00:[address] [facility] TDAP 2017-04-06 00:00:00 Completed [facility] TDAP 2017-04-06 00:00:00 Completed [facility] TDAP 2014-12-20 00:00:[address] [facility] TDAP 2014-12-20 00:00:[address] [facility] TDAP 2014-12-20 00:00:[address] [facility] TDAP 2014-12-20 00:00:[address] [facility] TDAP 2014-12-20 00:00:[address] [facility] TDAP 2014-12-20 00:00:[address] [facility] TDAP 2014-12-20 00:00:[address] [facility] TDAP 2014-12-20 00:00:00 Completed [facility] TDAP 2014-12-20 00:00:00 Completed [facility] TDAP 2014-12-20 00:00:[address] [facility] TDAP 2014-12-20 00:00:00 Completed [facility] TDAP 2014-12-20 00:00:00 Completed [facility] TDAP 2014-12-20 00:00:00 Completed [facility] TDAP 2014-12-20 00:00:00 Completed [facility] TDAP 2014-12-20 00:00:00 Completed [facility] TDAP 2014-12-20 00:00:00 Completed [facility] [facility]AP 2014-12-20 00:00:00 Completed [facility] TDAP 2014-12-20 00:00:00 Completed [facility] TDAP 2014-12-20 00:00:00 Completed [facility] TDAP 2014-12-20 00:00:00 Completed [facility] TDAP 2014-12-20 00:00:00 Completed [facility] TDAP 2014-12-20 00:00:00 Completed [facility] TDAP 2014-12-20 00:00:00 Completed [facility] TDAP 2014-12-20 00:00:00 Completed [facility] TDAP 2014-12-20 00:00:00 Completed [facility] TDAP 2014-12-20 00:00:00 Completed [facility] TDAP 2014-12-20 00:00:00 Completed [facility] TDAP 2014-12-20 00:00:00 Completed [facility] TDAP 2014-12-20 00:00:00 Completed [facility] TDAP 2014-12-20 00:00:00 Completed [facility] TDAP 2014-12-20 00:00:00 Completed [facility] TDAP 2014-12-20 00:00:00 Completed [facility] TDAP 2014-12-20 00:00:00 Completed [facility] TDAP 2014-12-20 00:00:00 Completed [facility] TDAP 2014-12-20 00:00:00 Completed [facility] TDAP 2014-12-20 00:00:00 Completed [facility] TDAP 2014-12-20 00:00:00 Completed [facility] TDAP 2014-12-20 00:00:00 Completed [facility] TDAP 2014-12-20 00:00:00 Completed [facility] TDAP 2014-12-20 00:00:00 Completed [facility] TDAP 2014-12-20 00:00:00 Completed [facility] TDAP 2014-12-20 00:00:00 Completed [facility] TDAP 2014-12-20 00:00:00 Completed [facility] TDAP 2014-12-20 00:00:00 Completed [facility] TDAP 2014-12-20 00:00:00 Completed [facility] TDAP 2014-12-20 00:00:00 Completed [facility] TDAP 2014-12-20 00:00:00 Completed [facility] TDAP 2014-12-20 00:00:00 Completed [facility] Vital Signs Vital Name Observation Time Observation Value Comments S ource Systolic blood pressure 2025-05-14 18:07:00 117 mm[Hg] [facility] Diastolic blood pressure 2025-05-14 18:07:00 74 mm[Hg] [facility] Heart rate 2025-05-14 18:07:00 76 /min [facility] Body temperature 2025-05-14 18:07:00 35.72 Leena [facility] Respiratory rate 2025-05-14 18:07:00 18 /min [facility] Body height 2025-05-14 18:07:00 177.8 cm [facility] Body weight 2025-05-14 18:07:00 112.311 kg [facility] BMI 2025-05-14 18:07:00 35.53 kg/m2 [facility] Systolic blood pressure 2024-12-31 13:16:00 121 mm[Hg] [facility] Diastolic blood pressure 2024-12-31 13:16:00 84 mm[Hg] [facility] Heart rate 2024-12-31 13:16:00 70 /min [facility] Body height 2024-12-31 13:16:00 177.8 cm [facility] Body weight 2024-12-31 13:16:00 120.611 kg [facility] BMI 2024-12-31 13:16:00 38.15 kg/m2 [facility] Oxygen saturation in Arterial blood by Pulse oximetry 2024-12-31 13:16:00 98 /min [facility] Systolic blood pressure 2024-10-11 15:57:00 123 mm[Hg] [facility] Diastolic blood pressure 2024-10-11 15:57:00 84 mm[Hg] [facility] Heart rate 2024-10-11 15:57:00 57 /min [facility] Body temperature 2024-10-11 15:57:00 37.06 Leena [facility] Respiratory rate 2024-10-11 15:57:00 18 /min [facility] Body height 2024-10-11 15:57:00 177.8 cm [facility] Body weight 2024-10-11 15:57:00 118.434 kg [facility] BMI 2024-10-11 15:57:00 37.46 kg/m2 [facility] Systolic blood pressure 2024-07-17 14:56:00 117 mm[Hg] [facility] Diastolic blood pressure 2024-07-17 14:56:00 81 mm[Hg] [facility] Heart rate 2024-07-17 14:56:00 84 /min [facility] Body temperature 2024-07-17 14:56:00 36 Leena [facility] Respiratory rate 2024-07-17 14:56:00 17 /min [facility] Body height 2024-07-17 14:56:00 177.8 cm [facility] Body weight 2024-07-17 14:56:00 117.845 kg [facility] BMI 2024-07-17 14:56:00 37.28 kg/m2 [facility] Systolic blood pressure 2024-04-24 15:04:00 123 mm[Hg] [facility] Diastolic blood pressure 2024-04-24 15:04:00 87 mm[Hg] [facility] Heart rate 2024-04-24 15:04:00 77 /min [facility] Body temperature 2024-04-24 15:04:00 36.83 Leena [facility] Respiratory rate 2024-04-24 15:04:00 18 /min [facility] Body height 2024-04-24 15:04:00 177.8 cm [facility] Body weight 2024-04-24 15:04:00 115.531 kg [facility] BMI 2024-04-24 15:04:00 36.55 kg/m2 [facility] Oxygen saturation in Arterial blood by Pulse oximetry 2024-04-24 15:04:00 99 /min [facility] Systolic blood pressure 2024-04-10 16:45:00 133 mm[Hg] [facility] Diastolic blood pressure 2024-04-10 16:45:00 86 mm[Hg] [facility] Heart rate 2024-04-10 16:45:00 68 /min [facility] Body temperature 2024-04-10 16:45:00 36.72 Leena [facility] Respiratory rate 2024-04-10 16:45:00 18 /min [facility] Body height 2024-04-10 16:45:00 177.8 cm [facility] Body weight 2024-04-10 16:45:00 116.665 kg [facility] BMI 2024-04-10 16:45:00 36.90 kg/m2 [facility] Oxygen saturation in Arterial blood by Pulse oximetry 2024-04-10 16:45:00 100 /min [facility] Systolic blood pressure 2024-04-10 15:13:00 133 mm[Hg] [facility] Diastolic blood pressure 2024-04-10 15:13:00 81 mm[Hg] [facility] Heart rate 2024-04-10 15:13:00 71 /min [facility] Body temperature 2024-04-10 15:13:00 35.67 Leena [facility] Respiratory rate 2024-04-10 15:13:00 18 /min [facility] Body height 2024-04-10 15:13:00 177.8 cm [facility] Body weight 2024-04-10 15:13:00 118.207 kg [facility] BMI 2024-04-10 15:13:00 37.39 kg/m2 [facility] Systolic blood pressure 2024-03-13 18:05:00 113 mm[Hg] [facility] Diastolic blood pressure 2024-03-13 18:05:00 78 mm[Hg] [facility] Heart rate 2024-03-13 18:05:00 79 /min [facility] Body temperature 2024-03-13 18:05:00 36.56 Leena [facility] Body height 2024-03-13 18:05:00 177.8 cm [facility] Body weight 2024-03-13 18:05:00 119.387 kg [facility] BMI 2024-03-13 18:05:00 37.77 kg/m2 [facility] Oxygen saturation in Arterial blood by Pulse oximetry 2024-03-13 18:05:00 100 /min [facility] Systolic blood pressure 2024-03-01 18:24:00 135 mm[Hg] [facility] Diastolic blood pressure 2024-03-01 18:24:00 93 mm[Hg] [facility] Heart rate 2024-03-01 18:23:00 73 /min [facility] Body temperature 2024-03-01 18:23:00 36.94 Leena [facility] Respiratory rate 2024-03-01 18:23:00 18 /min [facility] Body height 2024-03-01 18:23:00 177.8 cm [facility] Body weight 2024-03-01 18:23:00 120.203 kg [facility] BMI 2024-03-01 18:23:00 38.02 kg/m2 [facility] Oxygen saturation in Arterial blood by Pulse oximetry 2024-03-01 18:23:00 99 /min [facility] Systolic blood pressure 2024-01-16 20:20:00 134 mm[Hg] [facility] Diastolic blood pressure 2024-01-16 20:20:00 86 mm[Hg] [facility] Heart rate 2024-01-16 20:20:00 70 /[facility] 2024-01-16 20:20:00 177.8 cm [facility] Body weight 2024-01-16 20:20:00 121.882 kg [facility] BMI 2024-01-16 20:20:00 38.55 kg/m2 [facility] Oxygen saturation in Arterial blood by Pulse oximetry 2024-01-16 20:20:00 100 /min [facility] Systolic blood pressure 2024-01-16 19:06:00 147 mm[Hg] [facility] Diastolic blood pressure 2024-01-16 19:06:00 93 mm[Hg] [facility] Heart rate 2024-01-16 19:05:00 89 /min [facility] Body temperature 2024-01-16 19:05:00 36.5 Leena [facility] Respiratory rate 2024-01-16 19:05:00 18 /min [facility] Body height 2024-01-16 19:05:00 177.8 cm [facility] Body weight 2024-01-16 19:05:00 123.651 kg [facility] BMI 2024-01-16 19:05:00 39.11 kg/m2 [facility] Systolic blood pressure 2023-12-19 20:08:00 135 mm[Hg] [facility] Diastolic blood pressure 2023-12-19 20:08:00 83 mm[Hg] [facility] Heart rate 2023-12-19 20:08:00 86 /min [facility] Body temperature 2023-12-19 20:08:00 36.56 Leena [facility] Body height 2023-12-19 20:08:00 177.8 cm [facility] Body weight 2023-12-19 20:08:00 121.836 kg [facility] BMI 2023-12-19 20:08:00 38.54 kg/m2 [facility] Oxygen saturation in Arterial blood by Pulse oximetry 2023-12-19 20:08:00 99 /min [facility] Systolic blood pressure 2023-11-14 14:30:00 128 mm[Hg] [facility] Diastolic blood pressure 2023-11-14 14:30:00 79 mm[Hg] [facility] Heart rate 2023-11-14 14:30:00 69 /min [facility] Body temperature 2023-11-14 14:30:00 36 Leena [facility] Respiratory rate 2023-11-14 14:30:00 18 /min [facility] Body height 2023-11-14 14:30:00 177.8 cm [facility] Body weight 2023-11-14 14:30:00 120.022 kg [facility] BMI 2023-11-14 14:30:00 37.97 kg/m2 [facility] Systolic blood pressure 2023-10-13 19:04:00 137 mm[Hg] [facility] Diastolic blood pressure 2023-10-13 19:04:00 96 mm[Hg] [facility] Heart rate 2023-10-13 19:04:00 93 /min [facility] Body temperature 2023-10-13 19:04:00 36.17 Leena [facility] Respiratory rate 2023-10-13 19:04:00 18 /min [facility] Body weight 2023-10-13 19:04:00 117.663 kg [facility] BMI 2023-10-13 19:04:00 37.22 kg/m2 [facility] Systolic blood pressure 2023-10-11 22:32:00 119 mm[Hg] [facility] Diastolic blood pressure 2023-10-11 22:32:00 60 mm[Hg] [facility] Heart rate 2023-10-11 22:32:00 72 /min [facility] Body height 2023-10-11 22:32:00 177.8 cm [facility] Body weight 2023-10-11 22:32:00 119.795 kg [facility] BMI 2023-10-11 22:32:00 37.89 kg/m2 [facility] Oxygen saturation in Arterial blood by Pulse oximetry 2023-10-11 22:32:00 98 /min [facility] Systolic blood pressure 2023-07-18 18:33:00 127 mm[Hg] [facility] Diastolic blood pressure 2023-07-18 18:33:00 88 mm[Hg] [facility] Heart rate 2023-07-18 18:32:00 84 /min [facility] Body temperature 2023-07-18 18:32:00 37.17 Leena [facility] Respiratory rate 2023-07-18 18:32:00 17 /min [facility] Body height 2023-07-18 18:32:00 175.3 cm [facility] Body weight 2023-07-18 18:32:00 120.294 kg [facility] BMI 2023-07-18 18:32:00 39.16 kg/m2 [facility] Systolic blood pressure 2023-07-18 16:34:00 121 mm[Hg] [facility] Diastolic blood pressure 2023-07-18 16:34:00 89 mm[Hg] [facility] Heart rate 2023-07-18 16:34:00 73 /min [facility] Body height 2023-07-18 16:34:00 175.3 cm [facility] Body weight 2023-07-18 16:34:00 120.385 kg [facility] BMI 2023-07-18 16:34:00 39.19 kg/m2 [facility] Oxygen saturation in Arterial blood by Pulse oximetry 2023-07-18 16:34:00 100 /min [facility] Systolic blood pressure 2023-04-21 15:49:00 124 mm[Hg] [facility] Diastolic blood pressure 2023-04-21 15:49:00 84 mm[Hg] [facility] Heart rate 2023-04-21 15:49:00 88 /min [facility] Body temperature 2023-04-21 15:49:00 36.78 Leena [facility] Respiratory rate 2023-04-21 15:49:00 18 /min [facility] Body weight 2023-04-21 15:49:00 118.298 kg [facility] BMI 2023-04-21 15:49:00 37.42 kg/m2 [facility] Systolic blood pressure 2023-04-05 21:45:00 107 mm[Hg] [facility] Diastolic blood pressure 2023-04-05 21:45:00 65 mm[Hg] [facility] Heart rate 2023-04-05 21:45:00 82 /min [facility] Respiratory rate 2023-04-05 21:45:00 18 /min [facility] Body height 2023-04-05 21:45:00 177.8 cm [facility] Body weight 2023-04-05 21:45:00 118.525 kg [facility] BMI 2023-04-05 21:45:00 37.49 [facility] in Arterial blood by Pulse oximetry 2023-04-05 21:45:00 99 /min [facility] Systolic blood pressure 2023-03-18 21:19:00 122 mm[Hg] [facility] Diastolic blood pressure 2023-03-18 21:19:00 83 mm[Hg] [facility] Heart rate 2023-03-18 21:19:00 73 /min [facility] Body height 2023-03-18 21:19:00 180.3 cm [facility] Body weight 2023-03-18 21:19:00 119.477 [facility] BMI 2023-03-18 21:19:00 36.74 kg[facility]m2 [facility] Oxygen saturation in Arterial blood by Pulse oximetry 2023-03-18 21:19:00 100 /min [facility] Systolic blood pressure 2023-01-20 14:01:00 122 mm[Hg] [facility] Diastolic blood pressure 2023-01-20 14:01:00 78 mm[Hg] [facility] Heart rate 2023-01-20 14:01:00 66 /min [facility] Body temperature 2023-01-20 14:01:00 35.78 Leena [facility] Respiratory rate 2023-01-20 14:01:00 18 /min [facility] Body height 2023-01-20 14:01:00 177.8 cm [facility] Body weight 2023-01-20 14:01:00 120.339 kg [facility] BMI 2023-01-20 14:01:00 38.07 kg/m2 [facility] Body height 2022-09-30 15:09:00 177.8 cm [facility] Body weight 2022-09-30 15:09:00 120.657 kg [facility] BMI 2022-09-30 15:09:00 38.17 kg/m2 [facility] Systolic blood pressure 2022-09-17 16:27:00 104 mm[Hg] [facility] Diastolic blood pressure 2022-09-17 16:27:00 72 mm[Hg] [facility] Heart rate 2022-09-17 16:27:00 64 /min [facility] Body height 2022-09-17 16:27:00 177.8 cm [facility] Body weight 2022-09-17 16:27:00 120.657 kg [facility] BMI 2022-09-17 16:27:00 38.17 kg/m2 [facility] Oxygen saturation in Arterial blood by Pulse oximetry 2022-09-17 16:27:00 99 /min [facility] Systolic blood pressure 2022-09-14 19:34:00 133 mm[Hg] [facility] Diastolic blood pressure 2022-09-14 19:34:00 88 mm[Hg] [facility] Heart rate 2022-09-14 19:33:00 68 /min [facility] Body temperature 2022-09-14 19:33:00 36.28 Leena [facility] Respiratory rate 2022-09-14 19:33:00 20 /min [facility] Body weight 2022-09-14 19:33:00 121.156 kg [facility] BMI 2022-09-14 19:33:00 38.32 kg/m2 [facility] Body weight 2022-09-09 14:29:00 119.296 kg [facility] BMI 2022-09-09 14:29:00 37.74 kg/m2 [facility] Systolic blood pressure 2022-08-19 14:25:00 114 mm[Hg] [facility] Diastolic blood pressure 2022-08-19 14:25:00 79 mm[Hg] [facility] Heart rate 2022-08-19 14:25:00 94 /min [facility] Body weight 2022-08-19 14:25:00 119.704 kg [facility] BMI 2022-08-19 14:25:00 37.87 kg/m2 [facility] Oxygen saturation in Arterial blood by Pulse oximetry 2022-08-19 14:25:00 99 /min [facility] Systolic blood pressure 2022-08-11 16:42:00 103 mm[Hg] [facility] Diastolic blood pressure 2022-08-11 16:42:00 69 mm[Hg] [facility] Heart rate 2022-08-11 16:42:00 70 /min [facility] Body height 2022-08-11 16:42:00 177.8 cm [facility] Body weight 2022-08-11 16:42:00 120.657 kg [facility] BMI 2022-08-11 16:42:00 38.17 kg/m2 [facility] Oxygen saturation in Arterial blood by Pulse oximetry 2022-08-11 16:42:00 100 /min [facility] Systolic blood pressure 2022-08-03 14:12:00 137 mm[Hg] [facility] Diastolic blood pressure 2022-08-03 14:12:00 95 mm[Hg] [facility] Heart rate 2022-08-03 14:12:00 76 /min [facility] Body temperature 2022-08-03 14:12:00 37.22 Leena [facility] Respiratory rate 2022-08-03 14:12:00 16 /min [facility] Body height 2022-08-03 14:12:00 177.8 cm [facility] Body weight 2022-08-03 14:12:00 120.203 kg [facility] BMI 2022-08-03 14:12:00 38.02 kg/m2 [facility] Oxygen saturation in Arterial blood by Pulse oximetry 2022-08-03 14:12:00 100 /min [facility] Systolic blood pressure 2022-07-22 15:40:00 108 mm[Hg] [facility] Diastolic blood pressure 2022-07-22 15:40:00 76 mm[Hg] [facility] Heart rate 2022-07-22 15:40:00 75 /min [facility] Body temperature 2022-07-22 15:40:00 36.83 Leena [facility] Body height 2022-07-22 15:40:00 177.8 cm [facility] Body weight 2022-07-22 15:40:00 120.611 kg [facility] BMI 2022-07-22 15:40:00 38.15 kg/m2 [facility] Oxygen saturation in Arterial blood by Pulse oximetry 2022-07-22 15:40:00 100 /min [facility] Systolic blood pressure 2022-06-22 15:58:00 132 mm[Hg] [facility] Diastolic blood pressure 2022-06-22 15:58:00 88 mm[Hg] [facility] Heart rate 2022-06-22 15:55:00 88 /min [facility] Body temperature 2022-06-22 15:55:00 36.72 Leena [facility] Respiratory rate 2022-06-22 15:55:00 18 /min [facility] Body weight 2022-06-22 15:55:00 123.514 kg [facility] BMI 2022-06-22 15:55:00 40.21 kg/m2 [facility] Systolic blood pressure 2022-03-11 15:10:00 103 mm[Hg] [facility] Diastolic blood pressure 2022-03-11 15:10:00 66 mm[Hg] [facility] Heart rate 2022-03-11 15:10:00 76 /min [facility] Body temperature 2022-03-11 15:10:00 36.89 Leena [facility] Respiratory rate 2022-03-11 15:10:00 18 /min [facility] Body height 2022-03-11 15:10:00 175.3 cm [facility] Body weight 2022-03-11 15:10:00 122.879 kg [facility] BMI 2022-03-11 15:10:00 40.00 kg/m2 [facility] Systolic blood pressure 2021-12-15 20:27:00 123 mm[Hg] [facility] Diastolic blood pressure 2021-12-15 20:27:00 85 mm[Hg] [facility] Heart rate 2021-12-15 20:27:00 85 /min [facility] Body temperature 2021-12-15 20:26:00 35.94 Leena [facility] Respiratory rate 2021-12-15 20:26:00 16 /min [facility] Body height 2021-12-15 20:26:00 175.3 cm [facility] Body weight 2021-12-15 20:26:00 128.459 kg [facility] BMI 2021-12-15 20:26:00 41.82 kg/m2 [facility] Systolic blood pressure 2021-11-09 17:19:00 112 mm[Hg] [facility] Diastolic blood pressure 2021-11-09 17:19:00 77 mm[Hg] [facility] Heart rate 2021-11-09 17:19:00 92 /min [facility] Body temperature 2021-11-09 17:19:00 36.89 Leena [facility] Respiratory rate 2021-11-09 17:19:00 16 /min [facility] Body height 2021-11-09 17:19:00 176 cm [facility] Body weight 2021-11-09 17:19:00 127.007 kg [facility] BMI 2021-11-09 17:19:00 41.00 kg/m2 [facility] Oxygen saturation in Arterial blood by Pulse oximetry 2021-11-09 17:19:00 97 /min [facility] Body weight 2021-10-14 17:57:00 124.286 kg [facility] BMI 2021-10-14 17:57:00 39.31 kg/m2 [facility] Procedures Procedure Date / Time Performed Performing Clinician Source HIV 1/2 AG-AB WITH REFLEX 2025-05-14 19:23:00 Drew Borrego [facility] SYPHILIS IGG/IGM 2025-05-14 19:23[facility] CHLAMYDIA AMPLIFIED ASSAY 2025-05-14 19:22:00 Samia Borrego [facility] POCT TEST 2025-05-14 18:09:00 Samia Borrego [facility] THYROID STIMULATING HORMONE 2024-04-10 17:28[facility] ([id number])(TOTAL CHOLESTEROL, TRIGLYCERIDES, HDL) 2024-04-10 17:28:00 [facility] RESULTS 2024-04-05 21:13:47 Cintia Medina [facility] SLEEP STUDY DATA REPORT 2024-04-04 20:24:56 Doct or Unassigned, [place] [facility] POCT MOLECULAR FLU 2023-12-19 20:05:00 [facility] SYPHILIS IGG/IGM 2023-11-14 15:26:00 Lakhwinder Fish [facility] RPR (QUANTITATIVE) 2023-11-14 15:26:00 Bryce Fish [facility] HIV 1/2 AG-AB WITH REFLEX 2023-11-14 15:26:00 Micah Fish [facility] PAP SMEAR-LIQUID BASED-CP 2023-11-14 15:26:00 Micah Fish [facility] ASSIGNMENT OF BENEFITS 2023-11-14 14:08:35 Docto r Unassigned, [place] [facility] THYROID STIMULATING HORMONE 2023-10-13 20:11:00 [facility] LIPID PANEL ([id number])(TOTAL CHOLESTEROL, TRIGLYCERIDES, HDL) 2023-10-13 20:11:00 [facility] GLYCOSYLATED HEMOGLOBIN (A1C) 2023-10-13 20:11:00 [facility] VITAMIN D, 25-OH 2023-10-13 20:11:00 [facility] (HPV 9V) VACCINE 2023-10-13 19:05:55 Micah Fish [facility] PNEUMOCOCCAL 20 CONJUGATE (PREVNAR 20) VACCINE 2023-10-11 22:54:05 Janice Saldana [facility] FLU VACC ([id number]), 6 MO-64 YRS, .5ML, IM, QUAD (FLUCELVAX) 2023-07-18 18:44:53 Micah Fish [facility] GARDASIL 9 (HPV 9V) VACCINE 2023-07-18 18:36:36 Micah Fish [facility] COMP. METABOLIC PANEL ([id number]) 2023-03-30 17:15:00 Janice Saldana [facility] DISABILITY/FMLA 2022-10-15 06:01:00 Doctor Unass igned, [place] [facility] DISABILITY/FMLA 2022-10-05 06:01:00 Doctor Unass igned, [place] [facility] OP CORRESPONDENCE 2022-09-27 06:01:00 Doctor Jennifer ssigned, [place] [facility] GARDASIL 9 (HPV 9V) VACCINE 2022-09-14 21:30:55 Maci Silva [facility] CBC WITH DIFF 2022-09-14 20:55:00 Maci Silva [facility] GLYCOSYLATED HEMOGLOBIN (A1C) 2022-09-14 20:55:00 Maci Silva [facility] HIV 1/2 AG-AB WITH REFLEX 2022-09-14 20:55:00 Maci Tran [facility] XR ANKLE 3+ VW RIGHT 2022-08-03 15:01:46 Shruthi Zaragoza [facility] ASSIGNMENT OF BENEFITS 2022-03-11 14:33:56 Docto r Unassigned, [place] [facility] POCT MOLECULAR STREP 2021-11-09 17:26:00 Sharon Hardy [facility] COVID-19 (MOLECULAR TESTING NUCLEIC ACID AMPLIFICATION) 2021-10-14 17:57:00 Carl Zaragoza [facility] LAB ONLY COVID INTERPRETATION 2021-10-14 17:57:00 Carl Zaragoza [facility] Encounters Start Date/Time End Date/Time Encounter Type Admission Type Attending [facility] Facility Care Department Encounter ID Source 2022-07-08 14:18:23 Outpatient CHW CHW [id number] [facility] 2021-08-10 01:36:53 Emergency [facility] [id number] [facility] 2025-05-14 12:45:00 2025-05-14 14:23:05 Office Visit Samia Zamora [facility] 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 [facility] 1..840.114 350.1.13.10 4.2.7.2.686 [id number] [facility] 2025-05-13 11:15:00 2025-05-13 11:15:00 Outpatient SAMIA ZAMORA [facility] [id number] [facility] 2025-01-02 00:00:00 2025-02-02 18:14:19 Patient Secure Msg Doctor Unassigned, [place] Doctor Unassigned, [place] [facility] OFF[facility] BU[facility] 1.2.840.114 350.1.13.10 4.2.7.2.686 [id number] 044 [id number] [facility] 2024-12-31 09:15:00 2024-12-31 09:30:00 In Shop Service Technician Visit Lab, Ang - Janice Saucedo Lab, Ang - Db [facility] OFFICE BUILD[facility] 1..840.114 350.1.13.10 4.2.7.2.686 [id number] [facility] 2024-12-31 08:00:00 2024-12-31 08:45:23 Outpatient JANICE HIGGINBOTHAM [facility] [id number] [facility] 2024-12-31 08:00:00 2024-12-31 08:45:23 Office Visit Janice Saldana [facility] E[facility] MED[facility] OFFICE BUILDING 1.2.840.114 350.1.13.10 4.2.7.2.686 [id number] 044 [id number] [facility] 2024-03-01 00:00:00 2024-11-24 07:42:37 Orders Only Ivania Arce, [facility]RA?[facility] MED[facility] OFFICE BUILDING 1.2840.114 350.1.13.10 4.2.7.2.686 [id number] 044 [id number] [facility] 2024-04-23 00:00:00 2024-11-24 07:18:19 Orders Only Ivania Arce Perla [facility] E[facility] MED[facility] OFFICE BUILDING 1.20.114 350.1.13.10 4.2.7.2.686 [id number] 044 [id number] [facility] 2024-04-24 00:00:00 2024-11-24 07:17:28 Orders Only Ivania Arce [facility] EZRA?[facility] MED[facility] OFFICE BUILDING 1.2840.114 350.1.13.10 4.2.7.2.686 [id number] 044 [id number] [facility] 2024-10-11 09:30:00 2024-10-11 10:03:56 Outpatient R MICAH FISH [facility] [id number] [facility] 2024-10-11 09:30:00 2024-10-11 10:03:56 Nurse Visit Visit, Micah Vital C Visit, Amy Nurse [facility] 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 [facility] 1.2840.114 350.1.13.10 4.2.7.2.686 [id number] [facility] 2024-10-08 09:00:00 2024-10-08 09:00:00 Outpatient R PING SALDANATHIA [facility] [id number] [facility] 2024-07-17 09:30:00 2024-07-17 10:03:39 Outpatient R MICAH FISH [facility] [id number] [facility] 2024-07-17 09:30:00 2024-07-17 10:03:39 [facility] Micah Fish C Visit, [facility] Nurse [facility] 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 [facility] 1..840.114 350.1.13.10 4.2.7.2.686 [id number] [facility] 2024-07-16 08:00:00 2024-07-16 08:00:00 Outpatient R [facility] [id number] [facility] 2024-07-12 10:30:00 2024-07-12 10:30:00 Outpatient R [facility] [id number] [facility] 2024-05-05 00:00:00 2024-06-09 18:23:59 Patient Secure Msg Doctor Unassigned, [place] Doctor Unassigned, [place] [facility] 1.2.840.114 350.1.13.10 4.2.7.2.686 [id number] [facility] 2024-04-10 00:00:00 2024-05-12 18:19:47 Patient Secure Msg Doctor Unassigned, [place] COUNT INCLUDES [facility] 1.2840.114 350.1.13.10 4.2.7.2.686 [id number] [facility] 2024-04-24 11:00:00 2024-04-24 11:17:06 Outpatient R CINTIA CARR [facility] [id number] [facility] 2024-04-24 11:00:00 2024-04-24 11:15:00 In Shop Service Technician Visit Lab, Flako - Cintia Blank [facility] OFFICE BUILDING 1.2.840.114 350.1.13.10 4.2.7.2.686 [id number] [facility] 2024-04-24 10:20:00 2024-04-24 10:55:04 Office Visit Cintia Carr Gil [facility] MEDICAL OFFICE BUILDING 1.2.840.114 350.1.13.10 4.2.7.2.686 [id number] 044 [id number] [facility] 2024-03-16 00:00:00 2024-04-21 18:23:24 Patient Secure Msg Doctor Unassigned, [place] [facility] 1.2.840.114 350.1.13.10 4.2.7.2.686 [id number] [facility] 2024-04-18 00:00:00 2024-04-18 09:07:45 Telephone [facility] OFF[facility] BUILDING 1.2.840.114 350.1.13.10 4.2.7.2.686 [id number] 044 [id number] [facility] 2024-03-15 00:00:00 2024-04-17 16:58:22 Refill Shana [facility] MEDICAL OFFICE BUILDING 1.2.840.114 350.1.13.10 4.2.7.2.686 [id number] 044 [id number] [facility] 2024-04-17 10:30:00 2024-04-17 10:30:00 Outpatient JULIO KEANE STRAHIL [facility] [id number] [facility] 2024-04-12 00:00:00 2024-04-12 10:22:13 Telephone [facility] OFF[facility] BUILD[facility] 1.2840.114 350.1.13.10 4.2.7.2.686 [id number] 044 [id number] [facility] 2024-04-10 12:30:00 2024-04-10 12:34:51 In Shop Service Technician Visit Lab, Micah Acuña [facility] MEDICAL OFFICE BUILDING 1.2840.114 350.1.13.10 4.2.7.2.686 [id number] [facility] 2024-04-10 00:00:00 2024-04-10 12:18:45 Letter (Out) [facility] OFFICE BUILDING 1.2840.114 350.1.13.10 4.2.7.2.686 [id number] 044 [id number] [facility] 2024-04-10 11:30:00 2024-04-10 12:13:39 Office Visit [facility] OFFICE BUILDING 1.2840.114 350.1.13.10 4.2.7.2.686 [id number] 044 [id number] [facility] 2024-04-10 10:00:00 2024-04-10 10:23:33 Outpatient R MICAH FISH [facility] [id number] [facility] 2024-04-10 10:00:00 2024-04-10 10:23:33 Nurse Visit Visit, Flako-Rmchp Nurse Micah Fish [facility] 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 [facility] 1.2.840.114 350.1.13.10 4.2.7.2.686 [id number] [facility] 2024-04-09 00:00:00 2024-04-09 12:40:18 Refill Ping Saldanathia [facility] 1.2.840.114 350.1.13.10 4.2.7.2.686 [id number] 044 [id number] [facility] 2024-04-09 09:30:00 2024-04-09 09:30:00 Outpatient R MICAH FISH [facility] [id number] [facility] 2024-04-04 00:00:00 2024-04-05 08:37:45 Cintia Hyatt [facility] OFFICE BUILDING 1.2.840.114 350.1.13.10 4.2.7.2.686 [id number] [id number] [facility] 2024-04-03 14:00:00 2024-04-03 14:15:00 In Shop Service Technician Visit [facility] Julio Reeves [facility] 1.2.840.114 350.1.13.10 4.2.7.2.686 [id number] [facility] 2024-04-03 00:00:00 2024-04-03 14:07:17 Letter (Out) Shana Janice [facility] 1.2.840.114 350.1.13.10 4.2.7.2.686 [id number] [facility] 2024-04-03 14:00:00 2024-04-03 14:00:00 Outpatient R JULIO REEVES STRAHIL [facility] [id number] [facility] 2024-03-26 09:30:00 2024-03-26 09:30:00 Outpatient R [facility] [id number] [facility] 2024-03-13 13:00:00 2024-03-13 13:35:20 Outpatient R JANICE SALDANA [facility] [id number] [facility] 2024-03-13 13:00:00 2024-03-13 13:35:20 Office Visit [facility] MED[facility] OFFICE BUILDING 1.2.840.114 350.1.13.10 4.2.7.2.686 [id number] [id number] [facility] 2024-03-01 13:00:00 2024-03-01 13:46:12 Outpatient R CINTIA CARR [facility] [id number] [facility] 2024-03-01 13:00:00 2024-03-01 13:46:12 Office Visit Cintia Carr [facility] MEDICAL OFFICE BUILDING 1.2.840.114 350.1.13.10 4.2.7.2.686 [id number] 044 [id number] [facility] 2024-01-23 00:00:00 2024-01-23 00:00:00 [facility] MED[facility] OFFICE BUILDING 1.2.840.114 350.1.13.10 4.2.7.2.686 [id number] 044 [id number] [facility] 2024-01-22 00:00:00 2024-01-22 00:00:00 [facility] MED[facility] OFFICE BUILDING 1.2.840.114 350.1.13.10 4.2.7.2.686 [id number] 044 [id number] [facility] 2024-01-16 15:30:00 2024-01-16 16:00:54 Office Visit [facility] MEDICAL OFFICE BUILDING 1.2.840.114 350.1.13.10 4.2.7.2.686 [id number] 044 [id number] [facility] 2024-01-16 14:00:00 2024-01-16 14:11:32 Outpatient R MICAH FISH [facility] [id number] [facility] 2024-01-16 14:00:00 2024-01-16 14:11:32 Nurse Visit Visit, Ang-Rmchp Nurse Micah Fish [facility] 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 [facility] 1..840.114 350.1.13.10 4.2.7.2.686 [id number] [facility] 2024-01-12 10:30:00 2024-01-12 10:30:00 Outpatient R [facility] [id number] [facility] 2024-01-11 10:30:00 2024-01-11 10:30:00 Outpatient R [facility] [id number] [facility] 2024-01-10 00:00:00 2024-01-10 00:00:00 Refill Shana [facility] MEDICAL OFFICE BUILDING 1.840.114 350.1.13.10 4.2.7.2.686 [id number] 044 [id number] [facility] 2023-12-19 14:30:00 2023-12-19 15:27:54 Outpatient R JANICE SALDANA [facility] [id number] [facility] 2023-12-19 14:30:00 2023-12-19 15:27:54 Office Visit Sh[facility] MED[facility] OFFICE BUILDING 1.840.114 350.1.13.10 4.2.7.2.686 [id number] 044 [id number] [facility] 2023-12-19 00:00:00 2023-12-19 00:00:00 Shakeel Saldana [facility] MEDICAL OFFICE BUILDING 1..840.114 350.1.13.10 4.2.7.2.686 [id number] 044 [id number] [facility] 2023-11-21 13:30:00 2023-11-21 13:30:00 Outpatient R [facility] [id number] [facility] 2023-11-14 08:15:00 2023-11-14 09:26:30 Outpatient R MICAH FISH [facility] [id number] [facility] 2023-11-14 08:15:00 2023-11-14 09:26:30 Office Visit Micah Fish [facility] 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 [facility] 1.2840.114 350.1.13.10 4.2.7.2.686 [id number] [facility] 2023-11-14 00:00:00 2023-11-14 00:00:00 Orders Only Doctor Unassigned, [place] [facility] 1.2840.114 350.1.13.10 4.2.7.2.686 [id number] [facility] 2023-10-14 00:00:00 2023-10-14 00:00:00 Patient Secure Msg Doctor Unassigned, [place] [facility] MEDICAL OFFICE BUILDING 1.2.840.114 350.1.13.10 4.2.7.2.686 [id number] 044 [id number] [facility] 2023-10-13 14:15:00 2023-10-13 14:24:02 In Shop Service Technician Visit Lab, Ang - Micah Mcgarry [facility] MEDICAL OFFICE BUILDING 1.2840.114 350.1.13.10 4.2.7.2.686 [id number] [facility] 2023-10-13 13:00:00 2023-10-13 13:11:33 Outpatient R MICAH FISH [facility] [id number] [facility] 2023-10-13 13:00:00 2023-10-13 13:11:33 Nurse Visit Visit, Ang-Rmchp Nurse Micah Fish [facility] 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 [facility] 1.2.840.114 350.1.13.10 4.2.7.2.686 [id number] [facility] 2023-10-12 10:30:00 2023-10-12 10:30:00 Outpatient R [facility] [id number] [facility] 2023-10-11 16:00:00 2023-10-11 17:01:56 Outpatient R JANICE SALDANA [facility] [id number] [facility] 2023-10-11 16:00:00 2023-10-11 17:01:56 [facility] OFF[facility]ILD[facility] 1.2.840.114 350.1.13.10 4.2.7.2.686 [id number] 044 [id number] [facility] 2023-10-11 00:00:00 2023-10-11 00:00:00 Letter (Out) [facility] OFF[facility] BUILD[facility] 1.2.840.114 350.1.13.10 4.2.7.2.686 [id number] 044 [id number] [facility] 2023-09-20 00:00:00 2023-09-20 00:00:00 Refill [facility] OFF[facility] BUILD[facility] 1.2.840.114 350.1.13.10 4.2.7.2.686 [id number] [id number] [facility] 2023-09-19 10:30:00 2023-09-19 10:30:00 Outpatient R JANICE SALDANA [facility] [id number] [facility] 2023-09-09 00:00:00 2023-09-09 00:00:00 Refill Shana [facility] 1..840.114 350.1.13.10 4.2.7.2.686 [id number] 044 [id number] [facility] 2023-07-18 13:30:00 2023-07-18 13:41:59 Outpatient Fadia GLENISMACI FERNANDEZ [facility] [id number] [facility] 2023-07-18 13:30:00 2023-07-18 13:41:59 Nurse Visit Visit, Ang-Rmchp Nurse Maci Silva [facility] 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 [facility] 1..840.114 350.1.13.10 4.2.7.2.686 [id number] [facility] 2023-07-18 11:30:00 2023-07-18 12:00:00 Office Visit Janice Saldana [facility] MEDICAL OFFICE BUILDING 1..840.114 350.1.13.10 4.2.7.2.686 [id number] 044 [id number] [facility] 2023-07-14 13:00:00 2023-07-14 13:00:00 Outpatient MACI REYNA [facility] [id number] [facility] 2023-07-11 14:30:00 2023-07-11 14:30:00 Outpatient Fadia SHANA JANICE [facility] [id number] [facility] 2023-06-30 16:30:00 2023-06-30 16:30:00 Outpatient R SHANAJANICE [facility] [id number] [facility] 2023-06-29 00:00:00 2023-06-29 00:00:00 Patient Secure Msg Doctor Unassigned, [place] [facility] OFFICE BUILDING 1..840.114 350.1.13.10 4.2.7.2.686 [id number] 044 [id number] [facility] 2023-06-27 16:30:00 2023-06-27 16:30:00 Outpatient R SHANA JANICE [facility] [id number] [facility] 2023-06-27 09:00:00 2023-06-27 09:00:00 Outpatient R JESSICAJANICE VASQUEZ [facility] [id number] [facility] 2023-06-27 00:00:00 2023-06-27 00:00:00 Telephone JessicaPing [facility]quezC[facility] MEDICAL OFFICE [facility] 1.2.840.114 350.1.13.10 4.2.7.2.686 [id number] [id number] [facility] 2023-05-02 16:30:00 2023-05-02 16:30:00 Outpatient R SHANAJANICE [facility] [id number] [facility] 2023-04-21 10:30:00 2023-04-21 10:49:28 Outpatient MICAH GIPSON [facility] [id number] [facility] 2023-04-21 10:30:00 2023-04-21 10:49:28 Nurse Visit Visit, Ang-Rmchp Nurse Micah Fish [facility] 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 [facility] 1.2.840.114 350.1.13.10 4.2.7.2.686 [id number] [facility] 2023-04-18 15:30:00 2023-04-18 15:30:00 Outpatient MICAH GIPSON [facility] [id number] [facility] 2023-04-15 13:00:00 2023-04-15 13:00:00 Outpatient R MICAH FISH [facility] [id number] [facility] 2023-04-13 00:00:00 2023-04-13 00:00:00 Refill Shana [facility] OFFICE BUILDING 1.840.114 350.1.13.10 4.2.7.2.686 [id number] 044 [id number] [facility] 2023-04-06 00:00:00 2023-04-06 00:00:00 Patient Secure Msg Doctor Unassigned, [place] [facility] 1.840.114 350.1.13.10 4.2.7.2.686 [id number] [id number] [facility] 2023-04-05 16:30:00 2023-04-05 17:08:32 Outpatient R SHANAJANICE [facility] [id number] [facility] 2023-04-05 16:30:00 2023-04-05 17:08:32 [facility] OFF[facility] BUILDING 1.840.114 350.1.13.10 4.2.7.2.686 [id number] 044 [id number] [facility] 2023-04-01 00:00:00 2023-04-01 00:00:00 [facility] OFF[facility] BUILDING 1.2840.114 350.1.13.10 4.2.7.2.686 [id number] 044 [id number] [facility] 2023-04-01 00:00:00 2023-04-01 00:00:00 Refill [facility] OFFICE BUILDING 1.2.114 350.1.13.10 4.2.7.2.686 [id number] 044 [id number] [facility] 2023-04-01 00:00:00 2023-04-01 00:00:00 [facility]phone [facility] OFFICE BUILDING 1.840.114 350.1.13.10 4.2.7.2.686 [id number] 044 [id number] [facility] 2023-03-30 12:15:00 2023-03-30 12:17:27 In Shop Service Technician Visit Lab, Flako Bowman [facility] OFFICE BUILDING 1.840.114 350.1.13.10 4.2.7.2.686 [id number] [facility] 2023-03-30 12:15:00 2023-03-30 12:15:00 Outpatient R JANICE SALDANA [facility] [id number] [facility] 2023-03-30 00:00:00 2023-03-30 00:00:00 Letter (Out) [facility] OFFICE BUILDING 1.840.114 350.1.13.10 4.2.7.2.686 [id number] [facility] 2023-03-18 16:00:00 2023-03-18 16:51:23 Outpatient R JANICE SALDANA [facility] [id number] [facility] 2023-03-18 16:00:00 2023-03-18 16:51:23 Office Visit [facility] OFF[facility] BUILD[facility] 1..840.114 350.1.13.10 4.2.7.2.686 [id number] 044 [id number] [facility] 2023-01-20 08:30:00 2023-01-20 09:16:35 Outpatient R MICAH FISH [facility] [id number] [facility] 2023-01-20 08:30:00 2023-01-20 09:16:35 Nurse Visit Visit, Flako-Rmchp Nurse Micah Fish [facility] 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 [facility] 1.840.114 350.1.13.10 4.2.7.2.686 [id number] [facility] 2023-01-13 00:00:00 2023-01-13 00:00:00 RefPing RodriguezUNC [facility] 1.840.114 350.1.13.10 4.2.7.2.686 [id number] [facility] 2022-12-17 13:00:00 2022-12-17 13:00:00 Outpatient R MIKIE HANNA [facility] [id number] [facility] 2022-12-10 08:30:00 2022-12-10 08:30:00 Outpatient R MICAH FISH [facility] [id number] [facility] 2022-12-07 09:00:00 2022-12-07 09:00:00 Outpatient R MICAH FISH [facility] [id number] [facility] 2022-10-26 00:00:00 2022-10-26 00:00:00 Dondequan Saldana [facility] MED[facility] OFF[facility] BUILD[facility] 1.840.114 350.1.13.10 4.2.7.2.686 [id number] [facility] 2022-10-15 00:00:00 2022-10-15 00:00:00 Orders Only Doctor Unassigned, [place] [facility] 1.840.114 350.1.13.10 4.2.7.2.686 [id number] [facility] 2022-10-15 00:00:00 2022-10-15 00:00:00 [facility] 1..840.114 350.1.13.10 4.2.7.2.686 [id number] [id number] [facility] 2022-10-05 00:00:00 2022-10-05 00:00:00 Orders Only Doctor Unassigned, [place] [facility] 1.2840.114 350.1.13.10 4.2.7.2.686 [id number] [facility] 2022-09-30 09:00:00 2022-09-30 09:56:57 Outpatient R ROSSI [facility] [id number] [facility] 2022-09-30 09:00:00 2022-09-30 09:15:00 Office Visit [facility]RA?[facility] 1.2840.114 350.1.13.10 4.2.7.2.686 [id number] [facility] 2022-09-30 00:00:00 2022-09-30 00:00:00 Letter (Out) [facility] EZRA?[facility] 1.2840.114 350.1.13.10 4.2.7.2.686 [id number] [facility] 2022-09-27 00:00:00 2022-09-27 00:00:00 Orders Only Doctor Unassigned, [place] [facility] 1.2840.114 350.1.13.10 4.2.7.2.686 [id number] [facility] 2022-09-24 00:00:00 2022-09-24 00:00:00 Telephone [facility]RA?[facility] 1.2840.114 350.1.13.10 4.2.7.2.686 [id number] [facility] 2022-09-20 00:00:00 2022-09-20 00:00:00 Telephone [facility] EZRA?[facility] 1.2840.114 350.1.13.10 4.2.7.2.686 [id number] [facility] 2022-09-17 10:30:00 2022-09-17 11:07:17 [id number] 2022-09-17 10:30:00 2022-09-17 11:07:17 [facility] 1..840.114 350.1.13.10 4.2.7.2.686 [id number] [facility] 2022-09-17 00:00:00 2022-09-17 00:00:00 Telephone Rossi [facility] MED[facility] OFF[facility] BUILD[facility] 1..840.114 350.1.13.10 4.2.7.2.686 [id number] [facility] 2022-09-14 13:15:00 2022-09-14 14:55:23 Outpatient R YUE CARVALHO [facility] [id number] [facility] 2022-09-14 13:15:00 2022-09-14 14:55:23 Office Visit Provider, Flako-[facility] Yue Sheikh [facility] 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 [facility] 1..840.114 350.1.13.10 4.2.7.2.686 [id number] [facility] 2022-09-09 08:30:00 2022-09-09 08:45:00 Office Visit Rossi [facility] OFF[facility] BUILDING 1..840.114 350.1.13.10 4.2.7.2.686 [id number] [facility] 2022-09-09 08:30:00 2022-09-09 08:30:00 Outpatient R ROSSI [facility] [id number] [facility] 2022-09-06 00:00:00 2022-09-06 00:00:00 [facility] 1.2.840.114 350.1.13.10 4.2.7.2.686 [id number] [facility] 2022-09-01 00:00:00 2022-09-01 00:00:00 [facility]phone [facility] 1.2.840.114 350.1.13.10 4.2.7.2.686 [id number] [facility] 2022-08-30 00:00:00 2022-08-30 00:00:00 [facility]phone [facility] 1.2.840.114 350.1.13.10 4.2.7.2.686 [id number] [facility] 2022-08-25 00:00:00 2022-08-25 00:00:00 Telephone Rossi [facility] EZRA?[facility] 1.2.840.114 350.1.13.10 4.2.7.2.686 [id number] [facility] 2022-08-19 08:30:00 2022-08-19 23:59:00 Outpatient R MOLLY RICHEY [facility] [id number] [facility] 2022-08-19 08:30:00 2022-08-19 08:55:54 Office Visit [facility] EZRA?[facility] 1.2.840.114 350.1.13.10 4.2.7.2.686 [id number] [facility] 2022-08-19 00:00:00 2022-08-19 00:00:00 Letter (Out) Rossi Molly S [facility] EZRA?[facility] 1.2.840.114 350.1.13.10 4.2.7.2.686 [id number] [facility] 2022-08-11 11:30:00 2022-08-11 12:16:33 Outpatient R INDIGO BEAN [facility] [id number] [facility] 2022-08-11 11:30:00 2022-08-11 12:16:33 Office Visit Indigo Bean [facility] EZRA?[facility] 1.2.840.114 350.1.13.10 4.2.7.2.686 [id number] [facility] 2022-08-11 00:00:00 2022-08-11 00:00:00 Letter (Out) Indigo eBan [facility] EZRA?[facility] 1.2.840.114 350.1.13.10 4.2.7.2.686 [id number] [facility] 2022-08-10 15:30:00 2022-08-10 15:30:00 Outpatient R INDIGO BEAN [facility] [id number] [facility] 2022-08-10 09:30:00 2022-08-10 09:30:00 Outpatient R JANICE SALDANA [facility] [id number] [facility] 2022-08-09 00:00:00 2022-08-09 00:00:00 Telephone Hanhgil Carl [facility] EZRA?[facility] 1.2.840.114 350.1.13.10 4.2.7.2.686 [id number] [facility] 2022-08-03 09:26:46 2022-08-03 23:59:00 Outpatient R JOSE J SHERRYLEDY [facility] [id number] [facility] 2022-08-03 09:26:46 2022-08-03 23:59:00 Hospital Encounter Carl Zaragoza [facility] EZRA?[facility] MED[facility] OFFICE BUILDING 1.2.840.114 350.1.13.10 4.2.7.2.686 [id number] [facility] 2022-08-03 09:20:00 2022-08-03 10:23:46 Urgent Care Carl Zaragoza Unknown, Attending [facility] EZRA?[facility] MED[facility] OFFICE BUILDING 1.2.840.114 350.1.13.10 4.2.7.2.686 [id number] [facility] 2022-08-03 00:00:00 2022-08-03 00:00:00 Abstract [facility] 1.2.840.114 350.1.13.10 4.2.7.2.686 [id number] [facility] 2022-08-03 00:00:00 2022-08-03 00:00:00 Patient Secure Msg Carl Zaragoza [facility] EZRA?[facility] MED[facility] OFFICE BUILDING 1.2.840.114 350.1.13.10 4.2.7.2.686 [id number] [facility] 2022-07-28 00:00:00 2022-07-28 00:00:00 Refill [facility]ing [facility] MED[facility] OFF[facility] BUILDING 1.2.840.114 350.1.13.10 4.2.7.2.686 [id number] [facility] 2022-07-22 10:30:00 2022-07-22 11:03:14 Outpatient R JANICE SALDANA [facility] [id number] [facility] 2022-07-22 10:30:00 2022-07-22 11:03:14 Office Visit Janice Saldana [facility] 1.84.114 350.1.13.10 4.2.7.2.686 [id number] [facility] 2022-06-22 10:30:00 2022-06-22 10:56:38 Nurse Visit Visit, HumbertoYue Berrios [facility] 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 1.84.114 350.1.13.10 4.2.7.2.686 [id number] [facility] 2022-06-22 10:30:00 2022-06-22 10:30:00 Out[facility] [id number] [facility] 2022-06-03 09:30:00 2022-06-03 09:30:00 Outpatient JUNE BEAUCHAMPANAT [facility] [id number] [facility] 2022-06-03 09:30:00 2022-06-03 09:30:00 [id number] 2022-04-14 13:45:00 2022-04-14 14:13:35 Outpatient NAYELY MORGAN [facility] [id number] [facility] 2022-04-14 13:45:00 2022-04-14 14:00:00 Laboratory Only Only, Ang Db Test Nayely Chilel [facility] 1.840.114 350.1.13.10 4.2.7.2.686 [id number] [facility] 2022-03-11 09:30:00 2022-03-11 09:51:09 Nurse Visit Visit, CmRmchp Yue Obrien [facility] 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 [facility] 1.840.114 350.1.13.10 4.2.7.2.686 [id number] [facility] 2022-03-11 09:30:00 2022-03-11 09:30:00 Outpatient YUE BEAUCHAMP [facility] [id number] [facility] 2022-03-11 00:00:00 2022-03-11 00:00:00 Orders Only Doctor Unassigned, [place] [facility] 1..114 350.1.13.10 4.2.7.2.686 [id number] [facility] 2022-03-09 13:00:00 2022-03-09 13:00:00 Outpatient MICAH GIPSON [facility] [id number] [facility] 2021-12-15 14:30:00 2021-12-15 14:34:29 Outpatient YUE BEAUCHAMP [facility] [id number] [facility] 2021-12-15 14:30:00 2021-12-15 14:34:29 Nurse Visit Visit, Ang-Rmchp Nurse Yue Carvalho [facility] 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 [facility] 1.84.114 350.1.13.10 4.2.7.2.686 [id number] [facility] 2021-12-15 10:30:00 2021-12-15 10:30:00 Outpatient R [facility] [id number] [facility] 2021-12-15 10:30:00 2021-12-15 10:30:00 Outpatient R [facility] [id number] [facility] 2021-11-10 00:00:00 2021-11-10 00:00:00 Letter (Out) Carole Franklin [facility] 1.840.114 350.1.13.10 4.2.7.2.686 [id number] [facility] 2021-11-09 11:20:00 2021-11-09 11:40:00 Urgent Care Sandra Pineda [facility] MEDICAL OFFICE BUILDING 1.114 350.1.13.10 4.2.7.2.686 [id number] [facility] 2021-11-09 11:00:00 2021-11-09 11:20:56 Outpatient R HAYLEY [facility] [id number] [facility] 2021-11-09 11:00:00 2021-11-09 11:15:00 Laboratory Only Only, Ang Db Test Hayley [facility] MEDICAL OFFICE BUILDING 1.114 350.1.13.10 4.2.7.2.686 [id number] [facility] 2021-10-23 11:15:00 2021-10-23 11:31:02 Outpatient R CHARITY MCFARLAND [facility] [id number] [facility] 2021-10-23 11:15:00 2021-10-23 11:30:00 Laboratory Only Only, Ang Db Test Inocente [facility] MEDICAL OFFICE BUILDING 1.114 350.1.13.10 4.2.7.2.686 [id number] [facility] 2021-10-15 00:00:00 2021-10-15 00:00:00 Letter (Out) Carole Franklin [facility] 1.114 350.1.13.10 4.2.7.2.686 [id number] [facility] 2021-10-15 00:00:00 2021-10-15 00:00:00 Telephone Provider, Ang Db Urgent Care [facility] MEDICAL OFFICE BUILDING 1.114 350.1.13.10 4.2.7.2.686 [id number] [facility] 2021-10-14 11:20:00 2021-10-14 12:03:47 Outpatient ROSALINO NG III [facility] [id number] [facility] 2021-10-14 11:20:00 2021-10-14 12:03:47 Urgent Care Carl Zaragoza James C [facility] EZRA?[facility] 1.840.114 350.1.13.10 4.2.7.2.686 [id number] [facility] 2021-09-22 10:00:00 2021-09-22 10:37:13 Outpatient YUE BEAUCHAMP [facility] [id number] [facility] 2021-09-22 09:53:41 2021-09-22 10:37:13 [facility] Yue Carvalho [facility] 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 [facility] 1.840.114 350.1.13.10 4.2.7.2.686 [id number] [facility] 2021-09-18 10:30:00 2021-09-18 10:30:00 Outpatient ANTHONY ALCALA [facility] [id number] [facility] 2021-09-09 00:00:00 2021-09-09 00:00:00 Patient Secure Msg Doctor Unassigned, [place] [facility] BUILD[facility] 1..840.114 350.1.13.10 4.2.7.2.686 [id number] [facility] 2021-08-18 00:00:00 2021-08-18 00:00:00 Telephone Jo Lopez [facility] 1..840.114 350.1.13.10 4.2.7.2.686 [id number] [facility] 2021-08-17 08:20:01 2021-08-17 08:20:10 Imm/Inj Visit Nurse, Flakita [place] Immunizstacia RangelPj Eduardo [facility] 1..840.114 350.1.13.10 4.2.7.2.686 [id number] [facility] 2021-08-17 08:00:00 2021-08-17 08:20:10 Outpatient R EILEENYAZMINS [facility] [id number] [facility] 2021-08-06 00:00:00 2021-08-06 00:00:00 Orders Only Doctor Unassigned, [place] [facility] 1..840.114 350.1.13.10 4.2.7.2.686 [id number] [facility] 2021-07-30 09:19:20 2021-07-30 09:50:14 Office Visit Jo Lopez [facility] 1..840.114 350.1.13.10 4.2.7.2.686 [id number] [facility] 2021-07-30 09:00:00 2021-07-30 09:00:00 Outpatient R JO LOPEZ [facility] [id number] [facility] 2021-07-30 00:00:00 2021-07-30 00:00:00 Letter (Out) Jo Lopez [facility] 1..840.114 350.1.13.10 4.2.7.2.686 [id number] [facility] 2021-07-30 00:00:00 2021-07-30 00:00:00 Letter (Out) Jo Lopez [facility] 1.2.840.114 350.1.13.10 4.2.7.2.686 [id number] [facility] 2021-07-28 14:00:00 2021-07-28 23:59:00 Hospital Encounter Jo Lopez.HPhil [facility] Building 1.2.840.114 350.1.13.10 4.2.7.2.686 [id number] [facility] 2021-07-28 14:00:00 2021-07-28 14:00:00 Outpatient R JO LOPEZ [facility] [id number] [facility] 2021-07-27 08:50:00 2021-07-27 08:50:00 [facility] [id number] [facility] 2021-07-27 08:50:00 2021-07-27 08:48:42 [facility] [id number] [facility] 2021-07-27 08:48:35 2021-07-27 08:48:42 Imm/Inj Visit Nurse, Flakita Pob Immunizatio Pj Gotti [facility] 1..840.114 350.1.13.10 4.2.7.2.686 [id number] [facility] 2021-07-27 08:10:51 2021-07-27 08:25:51 Laboratory Only Only, Adc Test Jo Lopez.HPhil [facility] 1.2.840.114 350.1.13.10 4.2.7.2.686 [id number] [facility] 2021-07-27 08:00:00 2021-07-27 08:00:00 Outpatient R JO LOPEZ [facility] [id number] [facility] 2021-07-27 08:00:00 2021-07-27 08:00:00 Outpatient R [facility] [id number] [facility] 2021-07-23 00:00:00 2021-07-23 00:00:00 Patient Secure Msg Doctor Unassigned, [place] [facility] 1.2.840.114 350.1.13.10 4.2.7.2.686 [id number] [facility] 2021-07-23 00:00:00 2021-07-23 00:00:00 Telephone Jo Lopez [facility] 1.2.840.114 350.1.13.10 4.2.7.2.686 [id number] [facility] 2021-07-15 00:00:00 2021-07-15 00:00:00 Telephone Jo Lopez [facility] 1.2.840.114 350.1.13.10 4.2.7.2.686 [id number] [facility] 2021-07-09 13:00:00 2021-07-09 13:00:00 Outpatient R JO LOPEZ [facility] [id number] [facility] 2021-07-08 14:00:00 2021-07-08 14:00:00 Outpatient R JO LOPEZ [facility] [id number] [facility] 2021-07-06 00:00:00 2021-07-06 00:00:00 Telephone Jo LopezHPhil [facility] 1.2.840.114 350.1.13.10 4.2.7.2.686 [id number] [facility] 2021-07-03 10:30:00 2021-07-03 10:30:00 Outpatient R [facility] [id number] [facility] 2021-07-03 00:00:00 2021-07-03 00:00:00 Patient Secure Msg Doctor Unassigned, [place] [facility] 1..840.114 350.1.13.10 4.2.7.2.686 [id number] [facility] 2021-07-02 08:00:00 2021-07-02 08:00:00 Outpatient R JO LOPEZ [facility] [id number] [facility] 2021-07-02 08:00:00 2021-07-02 08:00:00 Outpatient R JO LOPEZ [facility] [id number] [facility] 2021-07-02 08:00:00 2021-07-02 08:00:00 Outpatient R JO LOPEZ [facility] [id number] [facility] 2021-07-01 00:00:00 2021-07-01 00:00:00 [facility] 1..840.114 350.1.13.10 4.2.7.2.686 [id number] [facility] 2021-06-30 00:00:00 2021-06-30 00:00:00 Telephone Yue Carvalho [facility] 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 [facility] 1..840.114 350.1.13.10 4.2.7.2.686 [id number] [facility] 2021-06-29 00:00:00 2021-06-29 00:00:00 Patient Secure g Janice Saldana [facility] Ezra?[facility] 1..840.114 350.1.13.10 4.2.7.2.686 [id number] [facility] 2021-06-26 10:34:31 2021-06-26 11:42:12 Office Visit Clyde Carvalhondshai Loaiza [facility] 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 [facility] 1..840.114 350.1.13.10 4.2.7.2.686 [id number] [facility] 2021-06-26 10:15:00 2021-06-26 10:15:00 Outpatient R YUE CARVALHO [facility] [id number] [facility] 2021-06-25 16:20:00 2021-06-25 16:20:00 Outpatient R KASEY KEATING [facility] [id number] [facility] 2021-06-19 00:00:00 2021-06-19 00:00:00 Patient Secure Janice Larios [facility] Ezra?[facility] 1..840.114 350.1.13.10 4.2.7.2.686 [id number] [facility] 2021-06-16 00:00:00 2021-06-16 00:00:00 Outpatient ALANA MOREL [facility] [id number] [facility] 2021-06-16 00:00:00 2021-06-16 00:00:00 Outpatient R ALANA LOERA [facility] [id number] [facility] 2021-06-11 13:00:00 2021-06-11 13:00:00 Outpatient JO WETZEL [facility] [id number] [facility] 2021-06-11 13:00:00 2021-06-11 13:00:00 Outpatient R JO LOPEZ [facility] [id number] [facility] 2021-06-09 13:13:02 2021-06-09 13:28:02 Laboratory Only Only, Adc Test Graeme Siddiqui [facility] 1..840.114 350.1.13.10 4.2.7.2.686 [id number] [facility] 2021-06-09 13:00:00 2021-06-09 13:00:00 Outpatient R [facility] [id number] [facility] 2021-06-09 00:00:00 2021-06-09 00:00:00 Telephone Janice Saldana [facility] Ezra?[facility] 1..840.114 350.1.13.10 4.2.7.2.686 [id number] [facility] 2021-06-05 10:20:46 2021-06-05 11:00:46 Ancillary Visit Melissa Casillas Craig L [facility] 1..840.114 350.1.13.10 4.2.7.2.686 [id number] [facility] 2021-06-02 13:00:00 2021-06-02 13:00:00 Outpatient R YUE CARVALHO [facility] [id number] [facility] 2021-05-29 09:00:00 2021-05-29 09:00:00 Outpatient R KASEY KEATING [facility] [id number] [facility] 2021-05-28 13:30:00 2021-05-28 13:30:00 Outpatient R MOLLY RICHEY [facility] [id number] [facility] 2021-05-27 16:00:00 2021-05-27 16:00:00 Outpatient R DARWIN LANGE [facility] [id number] [facility] 2021-05-27 00:00:00 2021-05-27 00:00:00 Patient Secure Msg Doctor Unassigned, [place] [facility] 1..840.114 350.1.13.10 4.2.7.2.686 [id number] [facility] 2021-05-22 00:00:00 2021-05-22 00:00:00 Orders Only Doctor Unassigned, [place] [facility] 1..840.114 350.1.13.10 4.2.7.2.686 [id number] [facility] 2021-05-21 09:00:00 2021-05-21 09:00:[address]YAN [facility] [id number] [facility] 2021-05-21 09:00:00 2021-05-21 09:00:00 Outpatient R CONNOR FOFANA [facility] [id number] [facility] 2021-05-20 00:00:00 2021-05-20 00:00:00 Patient Secure Msg Doctor Unassigned, [place] [facility] 1..840.114 350.1.13.10 4.2.7.2.686 [id number] [facility] 2021-05-14 09:30:00 2021-05-14 09:30:00 Outpatient R JO LOPEZ [facility] [id number] [facility] 2021-05-13 15:45:00 2021-05-13 16:12:20 Outpatient R ALANA LOERA [facility] [id number] [facility] 2021-05-13 14:30:00 2021-05-13 14:30:00 Outpatient R ALANA LOERA [facility] [id number] [facility] 2021-05-12 11:00:00 2021-05-12 11:00:00 Outpatient R JANICE SALDANA [facility] [id number] [facility] 2021-05-05 14:40:00 2021-05-05 15:54:26 Outpatient R KASEY KEATING [facility] [id number] [facility] 2021-05-04 00:00:00 2021-05-04 00:00:00 Outpatient ELADIA MURPHY [facility] [id number] [facility] 2021-04-28 10:30:00 2021-04-28 10:30:00 Outpatient R JANICE SALDANA [facility] [id number] [facility] 2021-04-28 09:20:00 2021-04-28 09:20:00 Outpatient R KASEY KEATING [facility] [id number] [facility] 2021-04-27 08:30:00 2021-04-27 08:30:00 Outpatient R JANICE SALDANA [facility] [id number] [facility] 2021-04-24 14:20:00 2021-04-24 14:20:00 Outpatient R KASEY KEATING [facility] [id number] [facility] 2021-04-23 13:00:00 2021-04-23 13:00:00 Outpatient OSCAR OTERO [facility] [id number] [facility] 2021-04-13 00:00:00 2021-04-13 00:00:00 Outpatient ELADIA MURPHY [facility] [id number] [facility] 2021-04-13 00:00:00 2021-04-13 00:00:00 Outpatient ELADIA MURPHY [facility] [id number] [facility] 2021-04-01 00:00:00 2021-04-01 00:00:00 Outpatient ELADIA MURPHY [facility] [id number] [facility] 2021-04-01 00:00:00 2021-04-01 00:00:00 Outpatient ELADIA MURPHY [facility] [id number] [facility] 2021-03-29 00:00:00 2021-03-29 00:00:00 Patient Secure Msg Doctor Unassigned, [place] [facility] 1.2.840.114 350.1.13.10 4.2.7.2.686 [id number] [facility] 2021-03-26 14:30:00 2021-03-26 14:30:00 Outpatient R ELADIA HARDY [facility] [id number] [facility] 2021-03-10 15:00:00 2021-03-10 15:00:00 Outpatient R [facility] [id number] [facility] 2021-03-10 15:00:00 2021-03-10 15:00:00 Outpatient R YUE CARVALHO [facility] [id number] [facility] 2021-02-12 00:00:00 2021-02-12 00:00:00 Outpatient Tommy Tariq [facility] [id number] [facility] 2020-12-15 09:30:00 2020-12-15 09:30:00 Outpatient R [facility] [id number] [facility] 2020-12-12 15:30:00 2020-12-12 15:30:00 Outpatient R [facility] [id number] [facility] 2020-09-19 10:30:00 2020-09-19 10:30:00 Outpatient R [facility] [id number] [facility] 2020-09-19 10:30:00 2020-09-19 10:30:00 Outpatient R MICAH FISH [facility] [id number] [facility] 2020-08-27 15:00:00 2020-08-27 15:00:00 Outpatient R YUE CARVALHO [facility] [id number] [facility] 2020-08-22 08:15:00 2020-08-22 08:15:00 Outpatient R MICAH FISH [facility] [id number] [facility] 2020-07-10 00:00:00 2020-07-10 00:00:00 Patient Secure Msg Doctor Unassigned, [place] [facility] 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 [facility] [id number] [facility] 2020-06-27 10:00:00 2020-06-27 10:00:00 Outpatient R [facility] [id number] [facility] 2020-06-27 08:30:00 2020-06-27 08:30:00 Outpatient YUE BEAUCHAMP [facility] [id number] [facility] 2020-06-24 14:30:00 2020-06-24 14:30:00 Outpatient Fadia [facility] [id number] [facility] 2020-05-12 08:30:00 2020-05-12 08:30:00 Outpatient Fadia [facility] [id number] [facility] 2020-02-20 15:00:00 2020-02-20 15:00:00 Outpatient YUE BEAUCHAMP [facility] [id number] [facility] 2020-02-18 08:15:00 2020-02-18 08:15:00 Outpatient YUE BEAUCHAMP [facility] [id number] [facility] Results Test Description Test Time Test Comments Results Result [facility]61 22:26:23 * Test Item Value Reference Range Interpretation Comme nts TSH (test code = 2374891816) 0.31 0.45-4.70 L Lab Interpretation (test cod e = 87384-9) Abnormal [facility] (93844)(Total Cholesterol, Triglycerides, HDL)2024-04-10 21:57:55* Test Item Value Reference Range Interpretation Comme nts CHOL (test code = 4798878601) 169 mg/dL 120-200 HDL (test code = 8615498811) 40 mg/dL >=50 L HDLC RATIO (test code = 1026620203) 4.2 <=4.5 TRIG (test code = 9423048844) 74 mg/dL 30-170 LDL CHOL (test code = 72307-8) 114 mg/dL <=160 VLDL (test code = 7840321095) 15 mg/dL 5-60 Lab Interpretation (test cod e = 77073-0) [facility]normal [facility] [id number] 20:24:56 Ordered by an unspecified provider.[facility] Molecular [id number] 20:16:47* Test Item Value Reference Range Interpretation Comme nts POCT Molecular FluA (test co de = 09207-3) Negative Negative POCT Molecular FluB (test co de = 98302-5) Negative Negative Lab Interpretation (test cod e = 13102-1) Normal [facility] Molecular Tyl4160-28-31 20:16:47* Test Item Value Reference Range Interpretation Comme nts POCT Molecular FluA (test co de = 30766-2) Negative Negative POCT Molecular FluB (test co de = 58142-2) Negative Negative Lab Interpretation (test cod e = 23045-4) [facility] 20:56:30* Test Item Value Reference Range Interpretation Comme nts RPR (Quantitative) (test cod e = 14881-6) Nonreactive Nonreactive Lab Interpretation (test cod e = 85580-3) [facility] PARTIC[facility] [id number] 20:56:30* Test Item Value Reference Range Interpretation Comme nts T. pallidum Particle Agglutination (test code = 4408109332) Reactive Nonreactive A ALEJANDRINA (test code = ALEJANDRINA) Based on syphilis IgG/IgM, RPR, and TPPA results, suggests past or treated syphilis; however, clinical correlation is needed. Lab Interpretation (test code = 77616-1) [facility]normal [facility]-15 20:56:30* Test Item Value Reference Range Interpretation Comme nts RPR (Quantitative) (test cod e = 49233-5) Nonreactive Nonreactive Lab Interpretation (test cod e = 59969-2) [facility] PALLID[facility] PARTICLE [id number] 20:56:30* Test Item Value Reference Range Interpretation Comme nts T. pallidum Particle Agglutination (test code = 3589251350) Reactive Nonreactive A ALEJANDRINA (test code = ALEJANDRINA) Based on syphilis IgG/IgM, RPR, and TPPA results, suggests past or treated syphilis; however, clinical correlation is needed. Lab Interpretation (test code = 46519-7) [facility]normal [id number] 15:58:21* Test Item Value Reference Range Interpretation Comme nts Syphilis IgG/IgM (test code = 15348-5) Reactive Non-reactive A ALEJANDRINA (test code = ALEJANDRINA) Non-reactive - No serologic evidence of T. pallidum infection. Cannot exclude incubating or early syphilis. Submit a second specimen in 2-4 weeks if syphilis is clinically suspected. Equivocal - Further testing to follow. Reactive - Further testing to follow. Lab Interpretation (test code = 55742-4) [facility]normal [facility]/[id number] 15:58:21* Test Item Value Reference Range Interpretation Comme nts Syphilis IgG/IgM (test code = 34526-2) Reactive Non-reactive A ALEJANDRINA (test code = ALEJANDRINA) Non-reactive - No serologic evidence of T. pallidum infection. Cannot exclude incubating or early syphilis. Submit a second specimen in 2-4 weeks if syphilis is clinically suspected. Equivocal - Further testing to follow. Reactive - Further testing to follow. Lab Interpretation (test code = 07456-7) [facility] with [id number] 11:05:47* Test Item Value Reference Range Interpretation Comme [facility] HIV Semi-quantitative (test code = 29046-6) 0.17 Negative ALEJANDRINA (test code = ALEJANDRINA) Non-reactive for HIV-1 antigen and HIV-1/HIV-2 antibodies. ?No laboratory evidence of HIV infection. ?Repeat in 2-4 weeks if acute HIV infection is suspected. [facility] 1/2 Ag-Ab with [id number] 11:05:47* Test Item Value Reference Range Interpretation Comme [facility] HIV Semi-quantitative (test code = 55209-4) 0.17 Negative ALEJANDRINA (test code = ALEJANDRINA) Non-reactive for HIV-1 antigen and HIV-1/HIV-2 antibodies. ?No laboratory evidence of HIV infection. ?Repeat in 2-4 weeks if acute HIV infection is suspected. [facility]. METABOLIC PANEL (12489)2023-03-30 21:28:03* Test Item Value Reference Range Interpretation Comme nts NA (test code = 0082842387) 142 mmol/L 135-145 K (test code = 9172910334) 3.8 mmol/L 3.5-5.0 CL (test code = 6450473799) 104 mmol/L 98-108 CO2 TOTAL (test code = 0557489618) 29 mmol/L 23-31 AGAP (test code = 2532352143) 9 2-16 BUN (test code = 4598747103) 9 mg/dL 7-23 GLUCOSE (test code = 6643679854) 111 mg/dL 70-110 H CREATININE (test code = 3244303014) 0.66 mg/dL 0.50-1.04 TOTAL BILI (test code = 1552829751) 0.5 mg/dL 0.1-1.1 CALCIUM (test code = 4920461893) 9.2 mg/dL 8.6-10.6 T PROTEIN (test code = 9170549161) 7.1 g/dL 6.3-8.2 ALBUMIN (test code = 3752773288) 4.0 g/dL 3.5-5.0 ALK PHOS (test code = 4600716866) 61 U/L 34-122 ALTv (test code = 1742-6) 19 U/L 5-35 AST(SGOT) (test code = 2114362436) 23 U/L 13-40 eGFR (test code = 1680406464) 101.9 mL/min/1.73m2 ALEJANDRINA (test code = ALEJANDRINA) Association of Glomerular Filtration Rate (GFR) and Staging of Kidney Disease* + --+ --+ ------+| GFR (mL/min/1.73 m2) ?| With Kidney Damage ?| ?Without Kidney Damage+ --------+ --------+ +| ?>90 ?| ?Stage one ?| ? Normal ?+ ---+ ---+ -------+| ?60-89 ?| ?Stage two ?| ? Decreased GFR ? + --+ --+ ------+| ?30-59 ?| ?Stage three ?| ? Stage three ? + --+ --+ ------+| ?15-29 ?| ?Stage four ? | ? Stage four ?+ ---+ ---+ -------+| ?<15 (or dialysis) ? ?| ?Stage five ? | ? Stage five ?+ ---+ ---+ -------+ *Each stage assumes the associated GFR level has been in effect for at least three months. ?Stages 1 to 5, with or without kidney disease, indicate chronic kidney disease. Notes: Determination of stages one and two (with eGFR >59mL/min/1.73 m2) requires estimation of kidney damage for at least three months as defined by structural or functional abnormalities of the kidney, manifested by either:Pathological abnormalities or Markers of kidney damage (including abnormalities in the composition of the blood or urine or abnormalities in imaging tests). Lab Interpretation (test code = 52153-7) [facility]normal [facility] [id number] 17:36:35* Test Item Value Reference Range Interpretation Comme nts POCT Molecular Strep (test c ode = 25312-8) Negative Negative Lab Interpretation (test cod e = 39850-8) Normal [facility] Notes Date/Time Note Provider Source 2024-12-31 09:15:00 Images from the original note were not included. Venipuncture collection performed by clean technique on the left anticubitus. Total of 1 attempts were made. Slight pressure and a bandage/dressing were applied to the site(s). The patient experienced no complications. The following specimens were processed according to instructions and sent to [facility] laboratories per lab order on 12/31/2024 : LT BLUE SST 2 RED LAV 2 PPT DK GREEN (LiHep) DK GREEN (SodH) MEDINA DK BLUE (K2) DK BLUE (S) ACD Blood Culture NIPT/NTD T [facility] 2024-04-24 11:00:00 Images from the original note were not included. Venipuncture collection performed by clean technique on the left anticubitus. Total of 1 attempts were made. Slight pressure and a bandage/dressing were applied to the site(s). The patient experienced no complications. The following specimens were processed according to instructions and sent to [facility] laboratories per lab order on 04/24/2024 : LT BLUE SST 1 RED LAV PPT DK GREEN (LiHep) DK GREEN (SodH) MEDINA DK BLUE (K2) DK BLUE (S) ACD Blood Culture NIPT/NTD [facility] 2024-04-12 10:21:36 Attempted to contact patient, left message on voicemail See lab results Jayashree Martin MA [facility] 2024-04-12 08:15:34 Patient is returning a call she missed from the clinic in regards to results. Please advise. Santi Gilmore [facility] 2024-04-10 12:30:00 Images from the original note were not included. Venipuncture collection performed by clean technique on the left anticubitus. Total of 1 attempts were made. Slight pressure and a bandage/dressing were applied to the site(s). The patient experienced no complications. The following specimens were processed according to instructions and sent to [facility] laboratories per lab order on 04/10/2024 : LT BLUE SST 2 RED LAV 1 PPT DK GREEN (LiHep) DK GREEN (SodH) MEDINA DK BLUE (K2) DK BLUE (S) ACD Blood Culture NIPT/NTD [facility] 2024-04-09 12:39:09 Last Refilled: Disp Refills Start End MAGGIE naproxen 500 mg tablet 60 tablet 0 03/13/2024 -- -- Sig: Take 1 tablet by mouth 2 (two) times daily as needed for Pain (scale 4-6). Sent to pharmacy as: naproxen 500 mg tablet (NAPROSYN) Class: eRX Route: Oral Order: [id number] Date/Time Signed: 03/13/2024 13:30 E-Prescribing Status: Receipt confirmed by pharmacy (03/13/2024 1:30 PM CDT) Notes: Recent Visits Date Type Provider Dept 03/13/24 Office Visit Anene, Janice, ELECTRIC METER TECHNICIAN [facility] 03/01/24 Office Visit Cintia Carr MD [facility] 01/16/24 Office Visit Janice Saldana, ELECTRIC METER TECHNICIAN [facility] 12/19/23 Office Visit Janice Saldana, ELECTRIC METER TECHNICIAN [facility] 10/11/23 Office Visit Janice Saldana, ELECTRIC METER TECHNICIAN [facility] 07/18/23 Office Visit Janice Saldana, ELECTRIC METER TECHNICIAN [facility] 04/05/23 Office Visit Janice Saldana, ELECTRIC METER TECHNICIAN [facility] 03/18/23 Office Visit Janice Saldana, ELECTRIC METER TECHNICIAN [facility] Showing recent visits within past 540 days with a meds authorizing provider and meeting all other requirements Future Appointments Date Type Provider Dept 04/10/24 Appointment Janice Saldana FNP [facility] Showing future appointments within next 150 days with a meds authorizing provider and meeting all other requirements Vivian Bauman RN [facility] 2024-04-04 09:12:45 Images from the original note were not included. Changes Requested Name from pharmacy: SERTRALINE HCL 100 MG TABLET Will file in chart as: SERTRALINE 100 mg tablet Sig: Take 1.5 tablets by mouth in the morning. Original sig: TAKE 1.5 TABLETS BY MOUTH IN THE MORNING Disp: 135 tablet Refills: 1 Start: 04/04/2024 Class: eRX For: Anxiety Last ordered: 1 month ago (03/01/2024) by Cintia Carr MD Last refill: 03/01/2024 Rx #: [id number] Pharmacy comment: REQUEST FOR 90 DAYS PRESCRIPTION. DX Code Needed. Psychiatry: Antidepressants Ljxbbz7904/04/2024 08:40 AM Protocol Details Manual Review: Verify no changes in dose in the last 3 months Valid encounter within last 12 months This request has changes from the previous prescription. To be filled at: [facility]/pharmacy #[id number] Recent Visits Date Type Provider Dept 03/13/24 Office Visit Janice Saldana, ELECTRIC METER TECHNICIAN [facility] 03/01/24 Office Visit Cintia Carr MD [facility] 01/16/24 Office Visit Jessicapedro Janice ELECTRIC METER TECHNICIAN [facility] 12/19/23 Office Visit Jessicapedro Janice, ELECTRIC METER TECHNICIAN [facility] 10/11/23 Office Visit Janice Saldana, ELECTRIC METER TECHNICIAN [facility] 07/18/23 Office Visit Jessicapedro Janice, ELECTRIC METER TECHNICIAN [facility] 04/05/23 Office Visit Jessicapedro Janice, ELECTRIC METER TECHNICIAN [facility] 03/18/23 Office Visit Shana Janice ELECTRIC METER TECHNICIAN [facility] Showing recent visits within past 540 days with a meds authorizing provider and meeting all other requirements Future Appointments Date Type Provider Dept 04/10/24 Appointment Janice Saldana FNP [facility] Showing future appointments within next 150 days with a meds authorizing provider and meeting all other requirements Samia Beth LVN [facility] 2024-03-13 13:00:00 Addended by: KATHY SALDANA DNP-JANICE SWEENEY on: 03/13/2024 05:29 PM Modules accepted: Level of Service [facility] 2024-01-23 07:07:30 Images from the original note were not included. Notes: 10/11/23 Last Refilled: [facility]/pharmacy #[id number] - [address] Recent Visits Date Type Provider Dept 01/16/24 Office Visit Janice Saldana, ELECTRIC METER TECHNICIAN [facility] 12/19/23 Office Visit Janice Saldana, ELECTRIC METER TECHNICIAN [facility] 10/11/23 Office Visit Janice Saldana ELECTRIC METER TECHNICIAN [facility] 07/18/23 Office Visit Janice Saldana ELECTRIC METER TECHNICIAN [facility] 04/05/23 Office Visit Janice Saldana ELECTRIC METER TECHNICIAN [facility] 03/18/23 Office Visit Janice Saldana ELECTRIC METER TECHNICIAN [facility] 09/17/22 Office Visit Janice Saldana ELECTRIC METER TECHNICIAN [facility] 08/11/22 Office Visit Indigo Bean ELECTRIC METER TECHNICIAN [facility] Showing recent visits within past 540 days with a meds authorizing provider and meeting all other requirements Future Appointments Date Type Provider Dept 04/10/24 Appointment Janice Saldana FNP [facility] Showing future appointments within next 150 days with a meds authorizing provider and meeting all other requirements traZODone 50 mg tablet Sig: Take 1 tablet by mouth at bedtime. Disp: 90 tablet Refills: 0 Start: 01/22/2024 Class: eRX For: Anxiety Last ordered: 3 months ago (10/11/2023) by KATHY Thompson Psychiatry: Antidepressants Lkyfhk0101/22/2024 06:51 PM Protocol Details Manual Review: Verify no changes in dose in the last 3 months Valid encounter within last 12 months To be filled at: [facility]/pharmacy #[id number] Arianna Cardona MA [facility] 2024-01-10 09:34:18 Images from the original note were not included. Changes Requested Name from pharmacy: AZELASTINE HCL 0.05% DROPS Will file in chart as: AZELASTINE 0.05 % ophthalmic solution Sig: Place 1 Drop in both eyes in the morning and 1 Drop in the evening. Disp: 18 mL Refills: 1 Start: 01/10/2024 Class: eRX For: Allergic sinusitis Last ordered: 3 weeks ago (12/19/2023) by KATHY Thompson Last refill: 12/19/2023 Rx #: [id number] Pharmacy comment: REQUEST FOR 90 DAYS PRESCRIPTION. DX Code Needed. Allergy Frpvsd1601/10/2024 09:32 AM Protocol Details Valid encounter within last 12 months This request has changes from the previous prescription. To be filled at: [facility]/pharmacy #[id number] - [place], [place] - [address] [place] [address] Recent Visits Date Type Provider Dept 12/19/23 Office Visit Janice Saldana, ELECTRIC METER TECHNICIAN [facility] 10/11/23 Office Visit Janice Saldana, ELECTRIC METER TECHNICIAN [facility] 07/18/23 Office Visit Janice Saldana, ELECTRIC METER TECHNICIAN [facility] 04/05/23 Office Visit Janice Saldana, ELECTRIC METER TECHNICIAN [facility] 03/18/23 Office Visit Janice Saldana, ELECTRIC METER TECHNICIAN [facility] 09/17/22 Office Visit Janice Saldana, ELECTRIC METER TECHNICIAN [facility] 08/11/22 Office Visit Indigo Bean, ELECTRIC METER TECHNICIAN [facility] 07/22/22 Office Visit Janice Saldana, ELECTRIC METER TECHNICIAN [facility] Showing recent visits within past 540 days with a meds authorizing provider and meeting all other requirements Future Appointments Date Type Provider Dept 04/10/24 Appointment Janice Saldana, ELECTRIC METER TECHNICIAN [facility] Showing future appointments within next 150 days with a meds authorizing provider and meeting all other requirements Samia Beth LVN [facility] 2023-10-13 14:15:00 Images from the original note were not included. Venipuncture collection performed by clean technique on the right anticubitus. Total of 1 attempts were made. Slight pressure and a bandage/dressing were applied to the site(s). The patient experienced no complications. The following specimens were processed according to instructions and sent to [facility] laboratories per lab order on 10/13/2023 : LT BLUE SST 1 RST RED LAV 1 PPT DK GREEN (LiHep) LT GREEN 1 MEDINA DK BLUE (K2) DK BLUE (S) ACD Blood Culture NIPT/NTD [facility]"
[2025-07-29] MEDS ORDERED: KETOROLAC 30 MG/ML INJ ONE (07:10)
[2025-07-29] MEDS ORDERED: METOCLOPRAMIDE 10 MG/2mL INJ ONE (07:10)
[2025-07-29] MEDS ORDERED: NA CHLORIDE 0.9% 1,000 ML ONE (07:11)
[2025-07-29] MEDS ORDERED: DIPHENHYDRAMINE 50 MG/ML VIAL ONE (07:11)
[2025-07-29 07:21] LABS: Absolute Lymphocytes (CBC) 2.0 K/uL (0.7-4.9); Hematocrit 38.3 % (36.0-45.0); Hemoglobin 12.7 g/dL (12.0-15.0); MCH 26.8 pg (27.0-35.0); MCHC 33.1 g/dL (32.0-36.0); MCV 81.0 fL (80-100); MPV 8.5 fL (7.6-11.3); Nucleated RBC Absolute Count 0.0 (0-0); Nucleated Red Blood Cells % 0.0 % (0-0); RBC Red Blood Cell Count 4.74 M/uL (3.86-4.86); White Blood Count 7.20 thou/uL (4.3-10.9)
--- NOTE | 2025-07-29 07:43 | RAD REPORT ---
EXAMINATION: ONE VIEW CHEST XR CLINICAL INDICATION: CHEST PAIN TECHNIQUE: Frontal chest projection is submitted. Examination is limited by patient positioning and t echnique. COMPARISON: No prior exam. FINDINGS: The lungs are well inflated and clear. The heart is upper limit of normal in size. No displaced fract ures identified. IMPRESSION: No acute intrathoracic abnormalities.
[2025-07-29 07:44] LABS: PT Prothrombin Time 13.2 SECONDS (10-13.0); Protime INR 1.17
[2025-07-29 07:45] LABS: ALT/SGPT 24 U/L (13-56); AST/SGOT 14 U/L (15-37); Albumin 3.5 g/dL (3.4-5.0); Albumin/Globulin Ratio 0.9 (1.1-1.8); Alkaline Phosphatase 48 U/L (45-117); Anion Gap 7.6 mEq/L (5.0-15.0); BUN Blood Urea Nitrogen 8 mg/dL (7-18); Globulin 3.9 g/dL (2.3-3.5); Glucose Level 101 mg/dL (74-106); Magnesium 1.8 mg/dL (1.6-2.4); NT PRO-BNP 109 pg/mL (<125); Potassium 3.6 mEq/L (3.5-5.1); Thyroid Stimulating Hormone 0.823 uIU/mL (0.358-3.740); Troponin High Sensitivity 4.1 pg/mL (<58.9)
[2025-07-29 07:56] LABS: Bilirubin Indirect, Calculated 0.2 mg/dL (0.2-0.8)
[2025-07-29 08:31] LABS: Influenza A Ag Negative; Influenza B Ag Negative; SARS-CoV-2 Antigen Rapid Res Negative (Negative)
--- NOTE | 2025-07-29 08:52 | EDPHYS ---
Physician Documentation [facility] Name: Margareth Mcghee Age: 35 yrs Sex: Female : 1990 Arrival Date: 07/29/2025 Time: 05:38 Bed 4 Private MD: ED Physician Eduardo Pino HPI: 07/29 05:48 This 35 yrs old Black Female presents to ER via Unassigned with complaints of Chest sp4 Tightness, Headache. 07:31 Patient is a very pleasant 35-year-old female who dents with acute onset of moderate sp4 headache starting Tuesday and 2 days ago with associated midsternal chest pain. Patient reports elevated blood pressure at home up to 190 systolic. Patient now presents with worsening headache and reports associated chest pain. Patient takes amlodipine 10 mg p.o. daily.. 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 - Infectious Disease History:: Denies. - Family history:: not pertinent. - Social history:: Smoking status: Patient denies any tobacco usage or history of. ROS: 07:31 Constitutional: Negative for fever, chills, and weight loss, positive headache, sp4 positive chest pain 07:31 All other systems are negative, Exam: 07:31 Constitutional: This is a well developed, well nourished patient who is awake, alert, sp4 and in no acute distress. Head/Face: Normocephalic, atraumatic. Eyes: Pupils equal round and reactive to light, extra-ocular motions intact. Lids and lashes normal. Conjunctiva and sclera are not injected. Cornea within normal limits. Periorbital areas with no swelling, redness, or edema. ENT: Nares patent. No nasal discharge, no septal abnormalities noted. Tympanic membranes are normal and external auditory canals are clear. Oropharynx with no redness, swelling, or masses, exudates, or evidence of obstruction, uvula midline. Mucous membranes moist. Neck: Trachea midline, no thyromegaly or masses palpated, and no cervical lymphadenopathy. Supple, full range of motion without nuchal rigidity, or vertebral point tenderness. Chest/axilla: Normal chest wall appearance and motion. Nontender with no deformity. No lesions are appreciated. Cardiovascular: Regular rate and rhythm with a normal S1 and S2. No gallops, murmurs, or rubs. No pulse deficits. Respiratory: Lungs have equal breath sounds bilaterally, clear to auscultation and percussion. No rales, rhonchi or wheezes noted. No increased work of breathing, no retractions or nasal flaring. Abdomen/GI: Soft, with normal bowel sounds. No distension or tympany. No guarding or rebound. No evidence of tenderness throughout. Back: No spinal tenderness. No costovertebral tenderness. Skin: Warm, dry with normal turgor. Normal color with no rashes, no lesions, and no evidence of cellulitis. MS/ Extremity: Pulses equal, no cyanosis. Neurovascular intact. Full, normal range of motion. Neuro: Awake and alert, GCS 15, oriented to person, place, time, and situation. Cranial nerves II-XII grossly intact. Motor strength 5/5 in all extremities. Sensory grossly intact. Psych: Awake, alert, with orientation to person, place and time. Behavior, mood, and affect are within normal limits 07:31 ECG was reviewed by the Attending Physician. EKG at 0 624 sinus rhythm short ME rate 74 otherwise normal Vital Signs: 05:55 BP 140 / 93; Pulse 80; Resp 18; Temp 98.3; Pulse Ox 100% on R/A; ss12 [place] Coma Score: 07:31 Eye Response: spontaneous(4). Motor Response: obeys commands(6). Verbal Response: sp4 oriented(5). Total: 15. MDM: 05:49 Medical Screening Exam initiated sp4 07:34 Differential diagnosis: acute pericarditis, anxiety, coronary artery disease chest wall sp4 pain, esophagitis, gastritis, gastroesophageal reflux disease (GERD). HEART Score: History: Slightly Suspicious (0), ECG: Normal (0), Age: < or = 45 years (0), Risk Factors: 1 or 2 risk factors (1), Troponin: < or = 1 x Normal Limit (0), Total Score = 1. Data reviewed: vital signs, nurses notes, old medical records, lab test result(s), EKG, radiologic studies, plain films. Consideration of Admission/Observation Escalation of care including admission/observation considered. 07:36 Transition of care: After a detail discussion of the patient's case, care is sp4 transferred to Eduardo Pino MD. 08:21 ED course: Patient taken over by me from night physician. 35-year-old female with sp3 headache and high blood pressure in the setting of diabetes and hypertension and known anxiety. Lab work is pending and headache meds have been ordered. They have just not been given and we will reevaluate patient after they have a chance to take effect. Will also review all blood work. Patient is currently stable in no acute distress resting comfortably. Vital signs are normal.. 08:50 ED course: Patient improved and we will safely discharge home at this time on tramadol..sp3 07/29 05:49 Order name: Basic Metabolic Panel; Complete Time: 08:38 sp4 07/29 05:49 Order name: CBC with Diff; Complete Time: 07:27 sp4 07/29 05:49 Order name: LFT's; Complete Time: 08:38 sp4 07/29 05:49 Order name: Magnesium; Complete Time: 08:38 sp4 07/29 05:49 Order name: NT PRO-BNP; Complete Time: 08:38 sp4 07/29 05:49 Order name: PT-INR; Complete Time: 07:49 sp4 07/29 05:49 Order name: Troponin HS; Complete Time: 08:38 sp4 07/29 05:49 Order name: Test, Serum; Complete Time: 07:31 sp4 07/29 05:49 Order name: COVID-19 Ag + Flu A+B Ag; Complete Time: 08:38 sp4 07/29 07:17 Order name: T4 Free; Complete Time: 08:38 EDMS 07/29 07:17 Order name: Thyroid Stimulating Hormone; Complete Time: 08:38 EDMS 07/29 05:49 Order name: XRAY Chest (1 view); Complete Time: 07:49 sp4 07/29 05:49 Order name: Cardiac monitoring; Complete Time: 06:52 sp4 07/29 05:49 Order name: EKG - Nurse/Tech; Complete Time: 06:56 sp4 07/29 05:49 Order name: IV Saline Lock; Complete Time: 06:52 sp4 07/29 05:49 Order name: Labs collected and sent; Complete Time: 06:52 sp4 07/29 05:49 Order name: O2 Per Protocol; Complete Time: 06:52 sp4 07/29 05:49 Order name: O2 Sat Monitoring; Complete Time: 06:52 sp4 EC:24 Rate is 74 beats/min. Rhythm is regular, Sinus Rhythm. QRS [place] is Normal. ME interval sp4 is shortened. QRS interval is normal. QT interval is normal. No Q waves. T waves are Normal. No ST changes noted. Clinical impression: No evidence of ischemia. Interpreted by me. Reviewed by me. Administered Medications: 08:06 Drug: NS 0.9% IV 1000 ml IV at 1000 ml once; to be given as a bolus over 60 minutes iw Route: IV; Rate: 1000 ml; Site: left upper arm; 09:20 Follow up: IV Status: Completed infusion iw 08:06 Drug: Ketorolac IVP 30 mg IVP once Route: IVP; Site: left upper arm; iw 08:06 Drug: metoCLOPramide IVP 10 mg IVP once; over 1 to 2 minutes Route: IVP; Site: left iw upper arm; 09:00 Follow up: Response: No adverse reaction iw 08:06 Drug: diphenhydrAMINE IVP 25 mg IVP once Route: IVP; Site: left upper arm; iw 08:30 Follow up: Response: No adverse reaction iw 09:49 Not Given (Patient Refused): droperidol1.25 mg IVP once iw Disposition: 07/30 01:01 Chart complete. sp4 Disposition Summary: 07/29/25 08:51 Discharge Ordered Notes: Location: Home sp3 Condition: Stable sp3 Diagnosis - Headache sp3 Followup: sp3 - With: Private Physician - When: Upon discharge from the Emergency Department - Reason: Continuance of care Discharge Instructions: - Discharge Summary Sheet sp3 - General Headache Without Cause sp3 Forms: - Medication Reconciliation Form sp3 - Antibiotic Education sp3 - Prescription Opioid Use sp3 - Patient Portal Instructions sp3 - Leadership Thank You Letter sp3 - Work release form db Prescriptions: - Tramadol 50 mg Oral Tablet - take 1 tablet ORAL route every 8 hours as needed; 12 tablet; Refills: 0, sp3 Product Selection Permitted Signatures: Dispatcher MedHoSanta Ana Health CenterWillow Randolph RN Eduardo Neal MD MD sp3 Dwight Herbert MD MD sp4 Sheri Wade RN RN ss12 Corrections: (The following items were deleted from the chart) 07/29 05:49 05:49 BASIC METABOLIC PANEL+C.LAB.BRZ ordered. EDMS EDMS 05:49 05:49 CBC+H.LAB.BRZ ordered. EDMS EDMS 05:49 05:49 HEPATIC FUNCTION+C.LAB.BRZ ordered. EDMS EDMS 05:49 05:49 MAGNESIUM+C.LAB.BRZ ordered. EDMS EDMS 05:49 05:49 PROBNP+C.LAB.BRZ ordered. EDMS EDMS 05:49 05:49 PROTIME (+INR)+COAG.LAB.BRZ ordered. EDMS EDMS 05:49 05:49 Troponin High Sensitivity+C.LAB.BRZ ordered. EDMS EDMS 05:49 05:49 Chest Single View+RAD.RAD.BRZ ordered. EDMS EDMS 05:49 05:49 TEST, SERUM+SC.LAB.BRZ ordered. EDMS EDMS 05:49 05:49 COVID-19 Ag + Flu A+B Ag+I.LAB.BRZ ordered. EDMS EDMS 07:15 06:21 THYROID STIMULAT HORMONE+C.LAB.BRZ ordered. EDMS EDMS 07:15 06:21 T4 FREE+C.LAB.BRZ ordered. EDMS EDMS
--- NOTE | 2025-07-29 08:52 | ER ---
Nurse's Notes [facility] Name: Margareth Mcghee Age: 35 yrs Sex: Female : 1990 Arrival Date: 07/29/2025 Time: 05:38 Bed 4 Private MD: Diagnosis: Headache Presentation: 07/29 05:55 Chief complaint: Patient states: headache that started on Tuesday and pt started having ss12 chest pain on Tuesday. Chest pain is intermittent and pt describes as "someone sitting on my chest" / pain. Coronavirus screen: Client denies travel out of the [place] in the last 14 days. Ebola Screen: Patient negative for fever greater than or equal to 101.5 degrees Fahrenheit, and additional compatible Ebola Virus Disease symptoms Patient denies exposure to infectious person. Patient denies travel to an Ebola-affected area in the 21 days before illness onset. Initial Sepsis Screen: Does the patient meet any 2 criteria? No. Patient's initial sepsis screen is negative. Does the patient have a suspected source of infection? No. Patient's initial sepsis screen is negative. Risk Assessment: Do you want to hurt yourself or someone else? Patient reports no desire to harm self or others. 05:55 Method Of Arrival: Ambulatory 12 06:39 Acuity: YELITZA 3 [facility] 06:45 Onset of symptoms was July 28, 2025. [facility] Triage Assessment: 06:00 General: Appears in no apparent distress. Behavior is calm, cooperative, quiet. Pain: ss12 Complains of pain in anterior aspect of left upper chest and left breast Pain currently is 9 out of 10 on a pain scale. Quality of pain is described as aching, Pain began suddenly, Is intermittent. 06:00 EENT: No deficits noted. No signs and/or symptoms were reported regarding the EENT 12 system. Neuro: Level of Consciousness is awake, alert, obeys commands, Oriented to person, place, time, situation. Cardiovascular: Capillary refill < 3 seconds Patient's skin is warm and dry. Respiratory: Airway is patent Respiratory effort is even, unlabored, Respiratory pattern is regular, symmetrical. GI: No deficits noted. No signs and/or symptoms were reported involving the gastrointestinal system. : No deficits noted. No signs and/or symptoms were reported regarding the genitourinary system. Derm: Skin is intact, Skin is dry, Skin is normal. Musculoskeletal: No deficits noted. No signs and/or symptoms reported regarding the musculoskeletal system. 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 - Infectious Disease History:: Denies. - Family history:: not pertinent. - Social history:: Smoking status: Patient denies any tobacco usage or history of. Screenin:39 [facility] ED Fall Risk Assessment (Adult) History of falling in the last 3 months, ss12 including since admission No falls in past 3 months (0 pts) Confusion or Disorientation No (0 pts) Intoxicated or Sedated No (0 pts) Impaired Gait No (0 pts) Mobility Assist Device Used No (0 pt) Altered Elimination No (0 pt) Score/Fall Risk Level 0 - 2 = Low Risk Oriented to surroundings, Maintained a safe environment, Educated pt \\T\\ family on fall prevention, incl call for assistance when getting out of bed, Assessed \\T\\ reinforced patient's understanding of fall precautions. Abuse screen: Denies threats or abuse. Denies injuries from another. Nutritional screening: No deficits noted. Tuberculosis screening: No symptoms or risk factors identified. Assessment: 06:45 Pain: Pain does not radiate. ss12 06:51 General: Appears in no apparent distress. Behavior is calm, cooperative. Pain: kd3 Complains of pain in chest and left breast. Neuro: Level of Consciousness is awake, alert, obeys commands, Oriented to person, place, time, situation. Cardiovascular: Capillary refill < 3 seconds Patient's skin is warm and dry. Respiratory: Airway is patent Trachea midline Respiratory effort is even, unlabored, Respiratory pattern is regular, symmetrical. 09:50 Reassessment: Patient appears in no apparent distress at this time. Patient and/or iw family updated on plan of care and expected duration. Pain level reassessed. Patient is alert, oriented x 3, equal unlabored respirations, skin warm/dry/pink. Patient states feeling better. Patient states symptoms have improved. Vital Signs: 05:55 BP 140 / 93; Pulse 80; Resp 18; Temp 98.3; Pulse Ox 100% on R/A; ss12 [place] Coma Score: 07:31 Eye Response: spontaneous(4). Motor Response: obeys commands(6). Verbal Response: sp4 oriented(5). Total: 15. ED Course: 05:42 Patient arrived in ED. gm2 05:48 Dwight Herbert MD is Attending Physician. sp4 05:56 Criss Metcalf, RN is Primary Nurse. kd3 06:39 Triage completed. ss12 06:43 XRAY Chest (1 view) In Process Unspecified. EDMS 06:44 Arm band placed on right wrist. ss12 06:44 No provider procedures requiring assistance completed. Patient maintains SpO2 ss12 saturation greater than 95% on room air. 06:45 Patient has correct armband on for positive identification. Provided Education on: plan ss12 of care. 06:46 Client placed on continuous cardiac and pulse oximetry monitoring. NIBP monitoring ss12 applied. cardiac monitor on. Pulse ox on. 06:51 Inserted saline lock: 20 gauge in right antecubital area, using aseptic technique. kd3 Blood collected. Flushed with 10 mL NS. 06:56 CBC with Diff Sent. ss12 06:56 LFT's Sent. ss12 06:56 Magnesium Sent. ss12 06:56 NT PRO-BNP Sent. ss12 06:56 PT-INR Sent. ss12 06:56 Troponin HS Sent. ss12 07:31 Attending Physician role handed off by Dwight Herbert MD sp3 07:31 Eduardo Pino MD is Attending Physician. sp3 09:49 Primary Nurse role handed off by Criss Metcalf, NOHEMI iw 09:49 Willow Gamboa, NOHEMI is Primary Nurse. iw 09:50 IV discontinued, intact, bleeding controlled, No redness/swelling at site. Pressure iw dressing applied. Administered Medications: 08:06 Drug: NS 0.9% IV 1000 ml IV at 1000 ml once; to be given as a bolus over 60 minutes iw Route: IV; Rate: 1000 ml; Site: left upper arm; 09:20 Follow up: IV Status: Completed infusion iw 08:06 Drug: Ketorolac IVP 30 mg IVP once Route: IVP; Site: left upper arm; iw 08:06 Drug: metoCLOPramide IVP 10 mg IVP once; over 1 to 2 minutes Route: IVP; Site: left iw upper arm; 09:00 Follow up: Response: No adverse reaction iw 08:06 Drug: diphenhydrAMINE IVP 25 mg IVP once Route: IVP; Site: left upper arm; iw 08:30 Follow up: Response: No adverse reaction iw 09:49 Not Given (Patient Refused): droperidol1.25 mg IVP once iw Medication: 06:44 VIS not applicable for this client. ss12 Outcome: 08:51 Discharge ordered by MD. [email or web address] 09:50 Discharged to home ambulatory, iw 09:50 Condition: good 09:50 Discharge instructions given to patient, Instructed on discharge instructions, follow up and referral plans. medication usage, Demonstrated understanding of instructions, follow-up care, medications, Prescriptions given X 1, 09:51 Patient left the ED. iw Signatures: Dispatcher [employer] EDMS Willow Gamboa, RN RN iw Eduardo Pino MD MD sp3 Criss Metcalf RN RN kd3 Dwight Herbert MD MD sp4 Jazz Wilkinson 2 Sheri Wade RN RN ss12
[2025-07-29 13:15] VITALS: BP 140/93; TEMP 98.3; O2SAT 100
== END 2025-07-29 09:51 | disposition home or self-care (01) ==
LOC: ER 05:38
DX: R51.9 Headache, unspecified (principal); R07.89 Other chest pain; Z11.52 Encounter for screening for COVID-19; I10 Essential (primary) hypertension; F41.9 Anxiety disorder, unspecified; E11.9 Type 2 diabetes mellitus without complications
CPT/HCPCS: 36415; 71045; 80048; 80076; 83735; 83880; 84439; 84443; 84484; 84703; 85025; 85610; 87428; 93005; 96361; 96374; 96375; 99285; J1200; J1885; J2765; J7030